=== PATIENT | female | born 1940 | race Caucasian/White ===

== ENCOUNTER 2018-04-08 07:26 | Day surgery (SDC) | payer MEDICARE, OTHER ==
[~2018-04-08 07:26] MED LIST: Lactated Ringers 1,000 ML IV SCH; Sodium Chloride 0.9% 10 ML Syringe FLUSH PRN
--- NOTE | 2018-04-09 09:08 | OR ---
DATE OF OPERATION: 04/08/2018 SURGEON: Jaren Lay MD PREOPERATIVE DIAGNOSIS: Cataract, right eye. POSTOPERATIVE DIAGNOSIS: Cataract, right eye. PROCEDURES: Phacoemulsification of cataract, right eye, with the placement of an Orantes model [id number], 20.5 diopters, foldable posterior chamber intraocular lens. MICA PLATE LAYER: None. DESCRIPTION OF PROCEDURE: Peribulbar anesthetic was performed using a mixture of 2% lidocaine with W[place]ase. The patient was prepped and draped in the usual fashion. A 3 mm fornix based conjunctival flap was performed at the 10 o'clock position. Hemostasis was obtained using diathermy, and a 2.8 mm grooved near clear corneal incision was then made. A stab incision was made into the anterior chamber at the 12 o'clock position and a second stab wound incision was made underlying the grooved near clear corneal incision. Viscoat was instilled into the anterior chamber, and a continuous tear capsulotomy was performed. Hydrodissection was accomplished with balanced salt solution, and the nucleus was removed in a divide and conquer fashion. The remaining cortical material was removed with the irrigation and aspiration unit. Viscoat was instilled into the anterior chamber, and an Orantes model [id number], 20.5 diopters, foldable, posterior chamber intraocular lens was placed into the capsular bag, the haptics being positioned at the 2 and 8 o'clock positions. The residual Viscoat was removed from the anterior chamber and the anterior chamber reformed with balanced salt solution. The wound was checked and noted to be watertight. The conjunctiva was secured in its original position with diathermy. Alphagan and Maxitrol Ointment were then placed into the patient's eye. The patient tolerated the procedure well and it was without complication. Elapsed phacoemulsification time was 55.5 seconds. Postoperative instructions as related to activities as well as medications were reviewed with the patient. The patient was instructed to return to see me on the day following surgery for the first postoperative check. The patient was also instructed to contact me prior to that time if the patient was to have any problems. Addendum: Because of the patient's borderline pupillary dilation, 0.3 mL of a mixture of phenylephrine, lidocaine, and balanced salt solution were instilled into the anterior chamber. This allowed adequate pupillary dilation throughout the course of the surgery. /[id number] DEG/MODL Cc: HEIDI Osorio OD
== END 2018-04-08 11:15 | disposition home or self-care (01) ==
LOC: FB.SDS 07:26
PROVIDERS: ATTEND Ophthalmology
PROC: 08RJ3JZ Replacement of Right Lens with Synthetic Substitute, Percutaneous Approach (ICD-10-PCS; principal; 2018-04-08)
DX: H26.8 Other specified cataract (principal); E11.9 Type 2 diabetes mellitus without complications; E78.5 Hyperlipidemia, unspecified; I10 Essential (primary) hypertension; E03.9 Hypothyroidism, unspecified; Z79.84 Long term (current) use of oral hypoglycemic drugs; Z79.82 Long term (current) use of aspirin; Z79.899 Other long term (current) drug therapy; Z88.8 Allergy status to other drugs, medicaments and biological substances; Z87.891 Personal history of nicotine dependence
CPT/HCPCS: 00142; 66984; 82962; C1780; J7120

== ENCOUNTER 2019-01-27 14:49 | Emergency (ER) | payer MEDICARE, OTHER ==
--- NOTE | 2019-01-27 15:40 | EDM.PDOC ---
ED HPI GENERAL MEDICAL PROBLEM - General Chief Complaint: Head Injury Stated Complaint: FROM CLINIC Time Seen by Provider: 01/27/19 15:08 Source of Information: Reports: Patient History Limitations: Reports: No Limitations - History of Present Illness INITIAL COMMENTS - FREE TEXT/NARRATIVE: 78-year-old female who was letting her dog outside and the leash got wrapped around her leg and she was pulled when going outside and fell on her deck and off the deck about 3 feet striking the back of her head and her left arm and her pelvis and buttocks area. She apparently also scraped her left arm and injured her left lower extremity. She states she had a brief loss of consciousness. She was able to get herself up on her own and walk back into her house. A family member arrived after her calling and found her to be pale and seemed to be somewhat out of breath and in pain. She presents via private vehicle. She has since cleared the shortness of breath and she is complaining of pain in her head, upper neck, left distal forearm area, tailbone and left lower extremity she is rating the pain in her tailbone and her left lower extremity as a 8/10. It is sharp. It is worse with movement and with palpation. She has some nausea but she has had no vomiting. Her vision is unchanged. No arm or leg weakness. No abdominal pain. No chest pain. There was no dizziness or malaise or chest pain or any other symptoms prior to her falling. There are no other associated signs or symptoms. There are no other modifying factors. Onset: Today (At approximately 12:45 PM) Location: Reports: Head, Neck, Pelvis, Upper Extremity, Left, Lower Extremity, Left Quality: Reports: Sharp, Throbbing Severity: Moderate Improves with: Reports: Immobilization, Rest Worsens with: Reports: Other (Palpation), Movement Associated Symptoms: Reports: Other (Nausea) Treatments CUSTOMER ACQUISITION MANAGER: Reports: Other (see below) Other Treatments CUSTOMER ACQUISITION MANAGER: Nothing tail bone Pain Score (Numeric/FACES): 8 head Pain Score (Numeric/FACES): 4 - Related Data Allergies Allergy/AdvReac Type Severity Reaction Status Date / Time amitriptyline [From Elavil] Allergy Cannot Verified 01/27/19 15:37 Remember atorvastatin [From Lipitor] Allergy Cannot Verified 01/27/19 15:37 Remember cephalexin Allergy Cannot Verified 01/27/19 15:37 Remember diclofenac [From Arthrotec] Allergy Swelling Verified 01/27/19 15:37 doxycycline Allergy Cannot Verified 01/27/19 15:37 Remember enalaprilat [From Vasotec] Allergy Cannot Verified 01/27/19 15:37 Remember ezetimibe [From Vytorin] Allergy Cannot Verified 01/27/19 15:37 Remember hydrochlorothiazide Allergy Cannot Verified 01/27/19 15:37 Remember meperidine [From Demerol] Allergy Facial Verified 01/27/19 15:37 Swelling metoclopramide [From Reglan] Allergy Facial Verified 01/27/19 15:37 Swelling misoprostol [From Arthrotec] Allergy Cannot Verified 01/27/19 15:37 Remember nifedipine [From Adalat] Allergy Cannot Verified 01/27/19 15:37 Remember Penicillins Allergy Cannot Verified 01/27/19 15:37 Remember pravastatin Allergy Cannot Verified 01/27/19 15:37 Remember prochlorperazine Allergy Cannot Verified 01/27/19 15:37 [From Compazine] Remember ramipril [From Altace] Allergy Cannot Verified 01/27/19 15:37 Remember rofecoxib [From Vioxx] Allergy Cannot Verified 01/27/19 15:37 Remember rosuvastatin [From Crestor] Allergy Cannot Verified 01/27/19 15:37 Remember simvastatin [From Vytorin] Allergy Cannot Verified 01/27/19 15:37 Remember Lpfasgi-Umq-Azb Reductase Allergy Cannot Verified 01/27/19 15:37 Inhibitor Remember terazosin [From Hytrin] Allergy Cannot Verified 01/27/19 15:37 Remember Home Meds: Home Meds Aspirin [Halfprin] 81 mg PO DAILY 04/07/18 [History] Levothyroxine [Synthroid] 50 mcg PO ACBREAKFAST 04/07/18 [History] Losartan Potassium [Cozaar] 50 mg PO BID 04/07/18 [History] Metoprolol Succinate [Toprol Xl] 100 mg PO BID 04/07/18 [History] amLODIPine Besylate [Norvasc] 2.5 mg PO DAILY 04/07/18 [History] metFORMIN [Glucophage XR] 500 mg PO TID 04/07/18 [History] Letrozole 2.5 mg PO BID 01/27/19 [History] Past Medical History HEENT History: Reports: Cataract, Impaired Vision Other HEENT History: PHACO IOL 03/2018 Cardiovascular History: Reports: High Cholesterol, Hypertension Respiratory History: Reports: None Gastrointestinal History: Reports: Colon Polyp Genitourinary History: Reports: None Other MANAGER SHIP History: VII PARA IV, PARA III Musculoskeletal History: Reports: Arthritis, Fibromyalgia Neurological History: Reports: Migraines Psychiatric History: Reports: Anxiety Endocrine/Metabolic History: Reports: Diabetes, Type II, Hypothyroidism, Multinodular Thyroid, Obesity/BMI 30+ Other Hematologic History: On no chronic anticoagulation. Immunologic History: Reports: None Oncologic (Cancer) History: Reports: Breast, Cervix Dermatologic History: Reports: None - Infectious Disease History Infectious Disease History: Reports: Chicken Pox, Measles, Mumps - Past Surgical History Head Surgeries/Procedures: Reports: None HEENT Surgical History: Reports: None, Oral Surgery Cardiovascular Surgical History: Reports: Other (See Below) Other Cardiovascular Surgeries/Procedures: ANGIOGRAM Respiratory Surgical History: Reports: None GI Surgical History: Reports: Appendectomy, Colonoscopy, EGD, Hernia, Abdominal , Manuela Fundoplication, Small Bowel Female Surgical History: Reports: Hysterectomy, Mastectomy, Salpingo- Oophorectomy, Other (See Below) Other Female Surgeries/Procedures: A&P BLADDER REPAIR, EXCISION OF VULVAR LESION, LEFT MASTECTOMY Endocrine Surgical History: Reports: None Neurological Surgical History: Reports: None Musculoskeletal Surgical History: Reports: Other (See Below) Other Musculoskeletal Surgeries/Procedures:: BILAT ANKLE LIPOMA EXCISION Oncologic Surgical History: Reports: Biopsy of Breast, Lumpectomy, Mastectomy Dermatological Surgical History: Reports: None Social & Family History - Family History Family Medical History: Noncontributory - Tobacco Use Smoking Status *Q: Never Smoker - Caffeine Use Caffeine Use: Reports: Coffee - Alcohol Use Alcohol Use History: Yes Alcohol Use Frequency: Rarely ED ROS GENERAL - Review of Systems Review Of Systems: See Below Constitutional: Reports: No Symptoms HEENT: Reports: No Symptoms Respiratory: Reports: No Symptoms (Did have shortness of breath with the activity of getting herself up and back into her house but this has resolved.) Cardiovascular: Reports: No Symptoms Endocrine: Reports: No Symptoms GI/Abdominal: Reports: Nausea Musculoskeletal: Reports: Neck Pain, Arm Pain, Leg Pain Skin: Reports: Other (Abrasion on left distal forearm) Neurological: Reports: Other (Brief loss of consciousness with the head injury from fall.) Psychiatric: Reports: No Symptoms Hematologic/Lymphatic: Reports: No Symptoms Immunologic: Reports: Other (Tetanus immunization greater than 5 years ago, so not up-to-date) ED EXAM, HEAD INJURY - Physical Exam Exam: See Below Exam Limited By: No Limitations General Appearance: Alert, WD/WN, No Apparent Distress Head: Normocephalic, Scalp Hematoma (Left sided), Scalp Tenderness, Other (No crepitus. No deformity.) Nexus Criteria: Posterior, Midline Cervical Tenderness, Altered Level of Consciousness (Normal now but she did have loss of consciousness) Eyes: Bilateral Eye: EOMI, Normal Inspection Ears: Normal External Exam, Hearing Grossly Normal Nose: Normal Inspection, Normal Mucousa, No Blood Throat/Mouth: Normal Inspection, Normal Voice, No Airway Compromise Neck: Normal Inspection, Tender Midline (At base of neck) Respiratory: No Respiratory Distress, Lungs Clear, Normal Breath Sounds, No Accessory Muscle Use, Chest Non-Tender Cardiovascular: Normal Peripheral Pulses, Regular Rate, Rhythm GI/Abdominal Exam: Normal Bowel Sounds, Soft, Non-Tender, No Mass, Pelvis Stable (But tender over posterior aspect along buttock area, left greater than right) Back Exam: Normal Inspection, Full Range of Motion Extremities: Normal Capillary Refill, Other (Tender over left lower leg. No left knee effusion with normal range of motion in the knee. Tender over the left hip and pelvis area but with no deformity.) Neurologic: outreach educator II-XII nml As Tested, No Motor/Sensory Deficits, Alert, Normal Mood/Affect, Oriented x 3 Skin: Normal Color, Warm/Dry, Other (Abrasion on left volar distal forearm) - Luisito Coma Score Best Eye Response (Luis[place]): (4) Open Spontaneously Best Verbal Response ([place]): (5) Oriented Best Motor Response ([place]is[place]): (6) Obeys Commands Luisito Total: 15 Course - Vital Signs Last Recorded V/S: Last Vital Signs Temp Pulse 90 01/27/19 14:50 Resp 18 01/27/19 14:50 BP 182/93 H 01/27/19 14:50 Pulse Ox 98 01/27/19 14:50 - Orders/Labs/Meds Orders: Active Orders 24 hr Category Date Time Status Vaccines to be Administered [RC] PER UNIT ROUTINE Care 01/27/19 17:18 Ordered Cervical Spine wo Cont [CT] Stat Exams 01/27/19 15:28 Taken Head wo Cont [CT] Stat Exams 01/27/19 15:28 Ordered Hip Min 2V or 3V w Pelvis Lt [CR] Stat Exams 01/27/19 15:28 Taken Sacrum Coccyx Min 2V [CR] Stat Exams 01/27/19 15:28 Taken Tibia Fibula Lt [CR] Stat Exams 01/27/19 15:28 Taken Diphth,Pertuss(Acell),Tet Vac [Adacel] Med 01/27/19 17:18 Once 0.5 ml IM .ONCE ONE Medication Orders Diphtheria/Tetanus/Acell Pertussis (Adacel) 0.5 ml IM .ONCE ONE Stop: 01/27/19 17:19 Meds: Medications Generic Name Dose Route Start Last Admin Trade Name Freq PRN Reason Stop Dose Admin Diphtheria/Tetanus/Acell Pertussis 0.5 ml 01/27/19 17:18 Adacel IM 01/27/19 17:19 .ONCE ONE Discontinued Medications Generic Name Dose Route Start Last Admin Trade Name Freq PRN Reason Stop Dose Admin Acetaminophen 1,000 mg 01/27/19 15:49 01/27/19 15:55 Tylenol Extra Strength PO 01/27/19 15:50 1,000 mg ONETIME ONE Administration Ondansetron HCl 4 mg 01/27/19 15:51 01/27/19 15:55 Zofran Odt PO 01/27/19 15:52 4 mg ONETIME ONE Administration Tramadol HCl 50 mg 01/27/19 15:49 01/27/19 15:55 Ultram PO 01/27/19 15:50 50 mg ONETIME ONE Administration - Radiology Interpretation Free Text/Narrative:: Left tib-fib x-ray shows no fracture. Pelvis and left hip x-ray shows no acute fracture. Coccyx and sacral x-rays shows nondisplaced coccyx fracture CT scan of head shows no acute pathology per the radiologist. CT scan of cervical spine shows no acute fracture per the radiologist. Departure - Departure Time of Disposition: 17:20 Disposition: Home, Self-Care 01 Condition: Good Clinical Impression: Concussion injury of brain Head contusion Qualifiers: Encounter type: initial encounter Contusion of head detail: scalp Qualified Code(s): S00.03XA - Contusion of scalp, initial encounter Fracture of coccyx Qualifiers: Encounter type: initial encounter Fracture type: closed Qualified Code(s): S32.2XXA - Fracture of coccyx, initial encounter for closed fracture Contusion, buttock Qualifiers: Encounter type: initial encounter Qualified Code(s): S30.0XXA - Contusion of lower back and pelvis, initial encounter Contusion of left lower extremity Qualifiers: Encounter type: initial encounter Qualified Code(s): S80.12XA - Contusion of left lower leg, initial encounter - Discharge Information Instructions: Head Injury, Adult, [id number], Facial or Scalp Contusion, Easy -to-Read, Concussion, Adult, [id number], Tailbone Injury, Contusion Referrals: Elva Ledesma SPECIAL EDUCATION SECRETARY [Primary Care Provider] - Forms: ED Department Discharge Additional Instructions: The CAT scans of your head and neck showed no bleeding or fractures. You do appear to have a concussion. You have a fractured tailbone. You appear to have bruised your pelvis, buttocks and left lower leg. Take Tylenol 1000 mg by mouth every 6 hours as needed for pain. Ambulate as tolerated. Use a soft pillow to sit on. Apply ice packs intermittently to the bruised and injured areas for the next few days. Back to the emergency department for vomiting, abdominal pain, blood in your urine or any other concerning sign or symptom. - My Orders Last 24 Hours: My Active Orders 01/27/19 15:28 Cervical Spine wo Cont [CT] Stat Head wo Cont [CT] Stat Hip Min 2V or 3V w Pelvis Lt [CR] Stat Sacrum Coccyx Min 2V [CR] Stat Tibia Fibula Lt [CR] Stat 01/27/19 17:18 Vaccines to be Administered [RC] PER UNIT ROUTINE Diphth,Pertuss(Acell),Tet Vac [Adacel] 0.5 ml IM .ONCE ONE - Assessment/Plan Last 24 Hours: My Active Orders 01/27/19 15:28 Cervical Spine wo Cont [CT] Stat Head wo Cont [CT] Stat Hip Min 2V or 3V w Pelvis Lt [CR] Stat Sacrum Coccyx Min 2V [CR] Stat Tibia Fibula Lt [CR] Stat 01/27/19 17:18 Vaccines to be Administered [RC] PER UNIT ROUTINE Diphth,Pertuss(Acell),Tet Vac [Adacel] 0.5 ml IM .ONCE ONE
[2019-01-27] MEDS ORDERED: Acetaminophen 500 MG Tab PO ONE (15:49)
[2019-01-27] MEDS ORDERED: traMADol 50 MG Tab PO ONE (15:49)
[2019-01-27] MEDS ORDERED: Ondansetron 4 MG Tab.DIS PO ONE (15:51)
[2019-01-27] MEDS ORDERED: Diphtheria,Pertussis(Acell),Tetanus Vaccine 0.5 ML SDV IM ONE (17:18)
--- NOTE | 2019-01-28 08:24 | CT ---
INDICATION: Fall with injury, now with pain. CT CERVICAL SPINE WITHOUT CONTRAST: Spiral 2.5 mm axial sections were obtained through the cervical spine with sagittal and coronal reconstructions, 01/27/19 - no comparisons. Total exam DLP = 376.10 mGy-cm. Degenerative changes and disk disease are noted in the cervical spine at the C5- 6, C6-7 levels with hypertrophic spurring, sclerosis, and subchondral cystic changes. Impingement on the neural foramina at those levels is also noted. Minimal degenerative change is noted at the atlantoodontoid joint. Prevertebral space and bone density appear to be normal. The odontoid and atlas were intact - no fractures or dislocations were identified in the cervical spine. Apical lung visualized incidentally was unremarkable. IMPRESSION: 1. No acute fracture or dislocation. 2. Degenerative changes and disk disease as noted above. Report was called to Dr. Riki Whelan at 1638 hours on 01/27/19. [id number]
--- NOTE | 2019-01-28 11:08 | CR ---
INDICATION: Fall with injury--pain. SACRUM AND COCCYX: Three views of the sacrum and coccyx were obtained 01/27/19- -no comparisons. Sacroiliac joints appear to be intact with mild degenerative changes, right greater then left. A definite fracture or dislocation was not identified. Somewhat diminished bone density may be present--correlate clinically. Degenerative changes and disc disease are suggested at L3-4 and L4-5. Incidental note of calcifications in the iliac arteries. IMPRESSION: 1. No acute fracture or dislocation. 2. Osteoarthritis. 3. Possible osteoporosis--correlate clinically. 4. 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 5. ASD. MTDD
--- NOTE | 2019-01-28 11:12 | CR ---
INDICATION: Fall with injury--pain. LEFT TIB-FIB: Frontal and lateral views of the left tibia and fibula revealed no evidence of an acute fracture or dislocation or other acute bone or joint abnormality. Some minimal degenerative change is suggested at the ankle mortise and at the knee joint. MTDD
--- NOTE | 2019-01-28 11:14 | CR ---
INDICATION: Fall with injury--pain. LEFT HIP WITH PELVIS: A single frontal view of the pelvis with AP and lateral views of the left hip were obtained 01/27/19--no comparisons. The hip joints appear to be fairly well maintained with only very minimal degenerative changes. Hip joint spaces were maintained. A fracture or dislocation was not identified. Sacroiliac joints appear to be intact with degenerative changes noted right greater than left. IMPRESSION: No acute fracture or dislocation. [facility]
== END 2019-01-27 17:45 | disposition home or self-care (01) ==
LOC: FB.ED 14:49
DX: S06.0X9A Concussion with loss of consciousness of unspecified duration, initial encounter (principal); S32.2XXA Fracture of coccyx, initial encounter for closed fracture; S00.03XA Contusion of scalp, initial encounter; S30.0XXA Contusion of lower back and pelvis, initial encounter; S80.12XA Contusion of left lower leg, initial encounter; S50.812A Abrasion of left forearm, initial encounter; I10 Essential (primary) hypertension; E11.9 Type 2 diabetes mellitus without complications; E66.9 Obesity, unspecified; Z23 Encounter for immunization; Z88.8 Allergy status to other drugs, medicaments and biological substances; Z88.1 Allergy status to other antibiotic agents; Z88.0 Allergy status to penicillin; Z79.82 Long term (current) use of aspirin; W17.89XA Other fall from one level to another, initial encounter
CPT/HCPCS: 70450; 72125; 72220; 73502; 73590; 90471; 99284; A9270

== ENCOUNTER 2020-10-06 12:58 | Emergency (ER) | payer MEDICARE, OTHER ==
--- NOTE | 2020-10-06 13:29 | EDM.PDOC ---
ED HPI GENERAL MEDICAL PROBLEM - General Stated Complaint: LOW BP Time Seen by Provider: 10/06/20 13:25 Source of Information: Reports: Patient, Family History Limitations: Reports: No Limitations - History of Present Illness INITIAL COMMENTS - FREE TEXT/NARRATIVE: Marni was brought from the clinic by her daughter. She had been complaining of abdominal pain and was found to have low BP at the clinic. She feels ok here. Abdominal pain is chronic. Some constipation. - Related Data Allergies Allergy/AdvReac Type Severity Reaction Status Date / Time amitriptyline [From Elavil] Allergy Cannot Verified 01/27/19 15:37 Remember atorvastatin [From Lipitor] Allergy Cannot Verified 01/27/19 15:37 Remember cephalexin Allergy Cannot Verified 01/27/19 15:37 Remember diclofenac [From Arthrotec] Allergy Swelling Verified 01/27/19 15:37 doxycycline Allergy Cannot Verified 01/27/19 15:37 Remember enalaprilat [From Vasotec] Allergy Cannot Verified 01/27/19 15:37 Remember ezetimibe [From Vytorin] Allergy Cannot Verified 01/27/19 15:37 Remember hydrochlorothiazide Allergy Cannot Verified 01/27/19 15:37 Remember meperidine [From Demerol] Allergy Facial Verified 01/27/19 15:37 Swelling metoclopramide [From Reglan] Allergy Facial Verified 01/27/19 15:37 Swelling misoprostol [From Arthrotec] Allergy Cannot Verified 01/27/19 15:37 Remember nifedipine [From Adalat] Allergy Cannot Verified 01/27/19 15:37 Remember Penicillins Allergy Cannot Verified 01/27/19 15:37 Remember pravastatin Allergy Cannot Verified 01/27/19 15:37 Remember prochlorperazine Allergy Cannot Verified 01/27/19 15:37 [From Compazine] Remember ramipril [From Altace] Allergy Cannot Verified 01/27/19 15:37 Remember rofecoxib [From Vioxx] Allergy Cannot Verified 01/27/19 15:37 Remember rosuvastatin [From Crestor] Allergy Cannot Verified 01/27/19 15:37 Remember simvastatin [From Vytorin] Allergy Cannot Verified 01/27/19 15:37 Remember Joklaex-Jbo-Vqk Reductase Allergy Cannot Verified 01/27/19 15:37 Inhibitor Remember terazosin [From Hytrin] Allergy Cannot Verified 01/27/19 15:37 Remember Home Meds: Home Meds Aspirin [Halfprin] 81 mg PO DAILY 04/07/18 [History] Levothyroxine [Synthroid] 50 mcg PO ACBREAKFAST 04/07/18 [History] Losartan Potassium [Cozaar] 50 mg PO BID 04/07/18 [History] Metoprolol Succinate [Toprol Xl] 100 mg PO BID 04/07/18 [History] amLODIPine Besylate [Norvasc] 2.5 mg PO DAILY 04/07/18 [History] metFORMIN [Glucophage XR] 500 mg PO TID 04/07/18 [History] Letrozole 2.5 mg PO BID 01/27/19 [History] Past Medical History HEENT History: Reports: Cataract, Impaired Vision Other HEENT History: PHACO IOL 03/2018 Cardiovascular History: Reports: High Cholesterol, Hypertension Respiratory History: Reports: None Gastrointestinal History: Reports: Colon Polyp Genitourinary History: Reports: None AGRICULTURAL EXTENSION EDUCATOR History: Reports: Other AGRICULTURAL EXTENSION EDUCATOR History: VII PARA IV, PARA III Musculoskeletal History: Reports: Arthritis, Fibromyalgia Neurological History: Reports: Migraines Psychiatric History: Reports: Anxiety Endocrine/Metabolic History: Reports: Diabetes, Type II, Hypothyroidism, Multinodular Thyroid, Obesity/BMI 30+ Hematologic History: Reports: None Other Hematologic History: On no chronic anticoagulation. Immunologic History: Reports: None Oncologic (Cancer) History: Reports: Breast, Cervix Dermatologic History: Reports: None - Infectious Disease History Infectious Disease History: Reports: Chicken Pox, Measles, Mumps - Past Surgical History Head Surgeries/Procedures: Reports: None HEENT Surgical History: Reports: None, Oral Surgery Cardiovascular Surgical History: Reports: Other (See Below) Other Cardiovascular Surgeries/Procedures: ANGIOGRAM Respiratory Surgical History: Reports: None GI Surgical History: Reports: Appendectomy, Colonoscopy, EGD, Hernia, Abdominal, Manuela Fundoplication, Small Bowel Female Surgical History: Reports: Hysterectomy, Mastectomy, Salpingo- Oophorectomy, Other (See Below) Other Female Surgeries/Procedures: A&P BLADDER REPAIR, EXCISION OF VULVAR LESION, LEFT MASTECTOMY Endocrine Surgical History: Reports: None Neurological Surgical History: Reports: None Musculoskeletal Surgical History: Reports: Other (See Below) Other Musculoskeletal Surgeries/Procedures:: BILAT ANKLE LIPOMA EXCISION Oncologic Surgical History: Reports: Biopsy of Breast, Lumpectomy, Mastectomy Dermatological Surgical History: Reports: None Social & Family History - Family History Family Medical History: No Pertinent Family History - Caffeine Use Caffeine Use: Reports: Coffee ED ROS GENERAL - Review of Systems Review Of Systems: Comprehensive ROS is negative, except as noted in HPI. Constitutional: Reports: No Symptoms HEENT: Reports: No Symptoms Respiratory: Reports: No Symptoms Cardiovascular: Reports: No Symptoms GI/Abdominal: Reports: Abdominal Pain, Constipation : Reports: No Symptoms, Urinary Retention Skin: Reports: No Symptoms ED EXAM, GENERAL - Physical Exam Exam: See Below Exam Limited By: No Limitations General Appearance: Alert, WD/WN, No Apparent Distress Ears: Normal External Exam Ear Exam: Bilateral Ear: Auricle Normal, Canal Normal, TM normal Throat/Mouth: Normal Inspection Neck: Normal Inspection Respiratory/Chest: No Respiratory Distress Departure - Departure Time of Disposition: 13:27 Disposition: Home, Self-Care 01 Condition: Good Clinical Impression: HTN (hypertension) - Discharge Information - Problem List & Annotations (1) HTN (hypertension) SNOMED Code(s): 08785122 Code(s): I10 - ESSENTIAL (PRIMARY) HYPERTENSION Status: Acute Qualifiers: Hypertension type: essential hypertension Qualified Code(s): I10 - Essential (primary) hypertension - Problem List Review Problem List Initiated/Reviewed/Updated: Yes - Assessment/Plan Plan: I reviewed labs from [facility]. Looked normal. I obtained her orthostatics here,no significant change. Will DC home Hold Norvasc if dizzy. Check BP daily. See PCP on Saturday
== END 2020-10-06 13:52 | disposition home or self-care (01) ==
LOC: FB.ED 12:58
DX: I10 Essential (primary) hypertension (principal); E11.9 Type 2 diabetes mellitus without complications; F41.9 Anxiety disorder, unspecified; E03.9 Hypothyroidism, unspecified; M19.90 Unspecified osteoarthritis, unspecified site; Z88.8 Allergy status to other drugs, medicaments and biological substances; Z88.1 Allergy status to other antibiotic agents; Z88.6 Allergy status to analgesic agent; Z88.5 Allergy status to narcotic agent; Z88.0 Allergy status to penicillin; Z79.82 Long term (current) use of aspirin; Z79.84 Long term (current) use of oral hypoglycemic drugs; Z79.899 Other long term (current) drug therapy
CPT/HCPCS: 99284

== ENCOUNTER 2020-10-31 12:06 | Inpatient (IN) | payer MEDICARE, OTHER ==
--- NOTE | 2020-10-31 13:33 | CR ---
INDICATION: Anasarca, weight gain. CHEST ONE VIEW: An AP upright portable view of the chest was obtained 10/31/20 and compared with 11/19/[address] [facility] PA view. The heart appears enlarged, the aorta is tortuous with calcification in the arch. Behind the heart there is suggestion of a fixed hiatal hernia - correlated clinically. Lumpectomy and axillary node dissection are noted on the left. Overlying EKG leads are noted. Relatively poor inspiration is noted emphasizing markings. No gross consolidating pneumonia or definite effusion was seen. With a relative poor inspiration and technique, it is difficult to entirely exclude minimal patchy bronchopneumonia in the mid to lower lung rojo, however, no gross consolidating pneumonia or effusion was seen. IMPRESSION: 1. No definite acute process, but difficult to exclude patchy bronchopneumonia in areas of heavy markings most likely on the basis of poor inspiration. Full inspiration PA and lateral views of the chest may be helpful when clinically possibly. 2. ASHD with cardiomegaly - no definite CHF identified. 3. Lumpectomy, left breast with axillary node dissection. MTDD
--- NOTE | 2020-10-31 15:00 | EDM.PDOC ---
ED HPI GENERAL MEDICAL PROBLEM - General Chief Complaint: Cardiovascular Problem Stated Complaint: LEG SWELLING Time Seen by Provider: 10/31/20 12:35 Source of Information: Reports: Patient, Family History Limitations: Reports: Altered Mental Status - History of Present Illness INITIAL COMMENTS - FREE TEXT/NARRATIVE: c/o wt gain x 1m pt on diuretics x 2m, dose of furosemide inc'd several days ago, however has 6 lb wt gain in past week (dtr not sure of past month) and 1 lb in past week after inc'd furosemide [facility], plans for cardiac intervention d/t breast CA has limited ability to walk d/t PVD lower abd Pain Score (Numeric/FACES): 7 - Related Data Allergies Allergy/AdvReac Type Severity Reaction Status Date / Time amitriptyline [From Elavil] Allergy Cannot Verified 01/27/19 15:37 Remember atorvastatin [From Lipitor] Allergy Cannot Verified 01/27/19 15:37 Remember cephalexin Allergy Cannot Verified 01/27/19 15:37 Remember diclofenac [From Arthrotec] Allergy Swelling Verified 01/27/19 15:37 doxycycline Allergy Cannot Verified 01/27/19 15:37 Remember enalaprilat [From Vasotec] Allergy Cannot Verified 01/27/19 15:37 Remember ezetimibe [From Vytorin] Allergy Cannot Verified 01/27/19 15:37 Remember hydrochlorothiazide Allergy Cannot Verified 01/27/19 15:37 Remember meperidine [From Demerol] Allergy Facial Verified 01/27/19 15:37 Swelling metoclopramide [From Reglan] Allergy Facial Verified 01/27/19 15:37 Swelling misoprostol [From Arthrotec] Allergy Cannot Verified 01/27/19 15:37 Remember nifedipine [From Adalat] Allergy Cannot Verified 01/27/19 15:37 Remember Penicillins Allergy Cannot Verified 01/27/19 15:37 Remember pravastatin Allergy Cannot Verified 01/27/19 15:37 Remember prochlorperazine Allergy Cannot Verified 01/27/19 15:37 [From Compazine] Remember ramipril [From Altace] Allergy Cannot Verified 01/27/19 15:37 Remember rofecoxib [From Vioxx] Allergy Cannot Verified 01/27/19 15:37 Remember rosuvastatin [From Crestor] Allergy Cannot Verified 01/27/19 15:37 Remember simvastatin [From Vytorin] Allergy Cannot Verified 01/27/19 15:37 Remember Rlclmgn-[id number]-Lqn Reductase Allergy Cannot Verified 01/27/19 15:37 Inhibitor Remember terazosin [From Hytrin] Allergy Cannot Verified 01/27/19 15:37 Remember Home Meds: Home Meds Aspirin [Halfprin] 81 mg PO DAILY 04/07/18 [History] Levothyroxine [Synthroid] 50 mcg PO ACBREAKFAST 04/07/18 [History] Losartan Potassium [Cozaar] 50 mg PO BID 04/07/18 [History] Metoprolol Succinate [Toprol Xl] 100 mg PO BID 04/07/18 [History] amLODIPine Besylate [Norvasc] 2.5 mg PO DAILY 04/07/18 [History] metFORMIN [Glucophage XR] 500 mg PO TID 04/07/18 [History] Letrozole 2.5 mg PO BID 01/27/19 [History] Past Medical History HEENT History: Reports: Cataract, Impaired Vision Other HEENT History: PHACO IOL 03/2018 Cardiovascular History: Reports: High Cholesterol, Hypertension Respiratory History: Reports: None Gastrointestinal History: Reports: Colon Polyp Genitourinary History: Reports: None [employer] History: Reports: Other [employer]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 Immunologic History: Reports: None Oncologic (Cancer) History: Reports: Breast, Cervix Dermatologic History: Reports: None - Infectious Disease History Infectious Disease History: Reports: Chicken Pox, Measles, Mumps - Past Surgical History Head Surgeries/Procedures: Reports: None HEENT Surgical History: Reports: None, Oral Surgery Cardiovascular Surgical History: Reports: Other (See Below) Other Cardiovascular Surgeries/Procedures: ANGIOGRAM Respiratory Surgical History: Reports: None GI Surgical History: Reports: Appendectomy, Colonoscopy, EGD, Hernia, Abdominal, Manuela Fundoplication, Small Bowel Female Surgical History: Reports: Hysterectomy, Mastectomy, Salpingo- Oophorectomy, Other (See Below) Other Female Surgeries/Procedures: A&P BLADDER REPAIR, EXCISION OF VULVAR LESION, LEFT MASTECTOMY Endocrine Surgical History: Reports: None Neurological Surgical History: Reports: None Musculoskeletal Surgical History: Reports: Other (See Below) Other Musculoskeletal Surgeries/Procedures:: BILAT ANKLE LIPOMA EXCISION Oncologic Surgical History: Reports: Biopsy of Breast, Lumpectomy, Mastectomy Dermatological Surgical History: Reports: None Social & Family History - Family History Family Medical History: No Pertinent Family History - Tobacco Use Tobacco Use Status *Q: Never Tobacco User - Caffeine Use Caffeine Use: Reports: None ED ROS GENERAL - Review of Systems Review Of Systems: See Below Constitutional: Reports: No Symptoms HEENT: Reports: No Symptoms Respiratory: Reports: Shortness of Breath Cardiovascular: Reports: Edema Endocrine: Reports: No Symptoms GI/Abdominal: Reports: Abdominal Pain. Denies: Constipation, Diarrhea, Nausea, Vomiting : Reports: No Symptoms Musculoskeletal: Reports: No Symptoms Skin: Reports: No Symptoms Neurological: Reports: No Symptoms Psychiatric: Reports: No Symptoms Hematologic/Lymphatic: Reports: No Symptoms Immunologic: Reports: No Symptoms ED EXAM, GENERAL - Physical Exam Exam: See Below Exam Limited By: No Limitations General Appearance: Alert, WD/WN, No Apparent Distress, Other (alert, makes eye contact, NAD, cannot answer simple questions such as "are you in pain") Ears: Hearing Grossly Normal Nose: Normal Inspection Throat/Mouth: Normal Inspection, Normal Voice, No Airway Compromise Head: Atraumatic, Normocephalic Neck: Normal Inspection, Supple, Non-Tender, Full Range of Motion. No: Lymphadenopathy (R), Lymphadenopathy (L) Respiratory/Chest: Other (crackle L base up 25%, crackles R base only, fair AE, no wheeze, no inc'd exp phase, no cough, no dyspnea) Cardiovascular: Regular Rate, Rhythm (2/6 RAFFY at LSB), No Gallop, Other (DP pulse trace b/l, 3+ edema to knees, 1+ to groin, trace presacral edema) GI/Abdominal: Soft, Non-Tender, Other (distention and rounding of abd, unclear if this is her baseline, soft, no point tender, may have dull at flanks) Back Exam: Normal Inspection, Full Range of Motion, NT Extremities: Normal Inspection, Normal Range of Motion, Non-Tender, No Pedal Edema Neurological: Alert, Oriented, CN II-XII Intact, Normal Cognition, No Motor/Sensory Deficits Psychiatric: Normal Affect, Normal Mood Skin Exam: Warm, Dry, Intact, Normal Color, No Rash Lymphatic: No Adenopathy Course - Vital Signs Last Recorded V/S: Last Vital Signs Temp 36.7 C 10/31/20 12:45 Pulse 72 10/31/20 12:45 Resp 20 10/31/20 12:45 BP 149/60 H 10/31/20 12:45 Pulse Ox 100 10/31/20 12:45 - Orders/Labs/Meds Orders: Active Orders 24 hr Category Date Time Status Chest 1V Frontal [CR] Stat Exams 10/31/20 12:23 Ordered Labs: Laboratory Tests 10/31/20 10/31/20 10/31/20 Range/Units 12:45 12:45 12:45 WBC 7.0 (3.0-10.3) x10-3/uL RBC 3.80 (3.60-5.20) x10(6)uL Hgb 11.2 L (11.4-15.5) g/dL Hct 34.5 (34.2-48.2) % MCV 90.9 (76.7-100.5) fL MCH 29.4 (23.9-33.9) pg MCHC 32.4 (31.9-34.8) g/dL RDW 12.7 (12.3-16.5) % Plt Count 287 (151-488) x10(3)uL MPV 9.7 (7.1-12.4) fL Neut % (Auto) 59.9 (30.8-76.2) % Lymph % (Auto) 27.6 (18.4-52.1) % [place] % (Auto) 8.1 (4.4-15.7) % Eos % (Auto) 3.2 (0.6-8.1) % Baso % (Auto) 1.2 (0.2-1.5) % Neut # (Auto) 4.2 (1.5-6.3) x10-3/uL Lymph # (Auto) 1.9 (1.0-4.4) x10-3/uL [place] # (Auto) 0.6 (0.3-1.0) x10-3/uL Eos # (Auto) 0.2 (0.0-0.8) x10-3/uL Baso # (Auto) 0.1 (0.0-0.1) x10-3/uL PT (9.0-11.1) sec INR (1.00-1.24) Sodium 135 (135-145) mmol/L Potassium 4.0 (3.5-5.3) mmol/L Chloride 99 L (100-110) mmol/L Carbon Dioxide 30 (21-32) mmol/L BUN 18 (7-18) mg/dL Creatinine 1.0 (0.55-1.02) mg/dL Est Cr Clr Drug Dosing TNP Estimated GFR (MDRD) 53 L (>60) BUN/Creatinine Ratio 18.0 (9-20) Glucose 139 H (80-116) mg/dL Calcium 8.7 (8.6-10.2) mg/dL Magnesium (1.8-2.5) mg/dL Total Bilirubin 0.4 (0.1-1.3) mg/dL AST 18 (5-25) IU/L ALT 15 (12-36) U/L Alkaline Phosphatase 88 (56-112) IU/L Troponin I (4.0-60.3) pg/mL C-Reactive Protein 1.3 H (0.5-0.9) mg/dL NT-Pro-B Natriuret Pep (<=450) pg/mL Total Protein 7.2 (6.0-8.0) g/dL Albumin 3.1 L (3.2-4.6) g/dL Globulin 4.1 g/dL Albumin/Globulin Ratio 0.8 TSH, Ultra Sensitive (0.36-3.74) IU/mL Urine Color (YELLOW) Urine Appearance (CLEAR) Urine pH (5.0-6.5) Ur Specific [place] (1.010-1.025) Urine Protein (NEGATIVE) mg/dL Urine Glucose (UA) (NORMAL) mg/dL Urine Ketones (NEGATIVE) mg/dL Urine Occult Blood (NEGATIVE) Urine Nitrite (NEGATIVE) Urine Bilirubin (NEGATIVE) Urine Urobilinogen (NEGATIVE) mg/dL Ur Leukocyte Esterase (NEGATIVE) Urine WBC (0-5) Ur Squamous Epith Cells (NS,R,O) Urine Bacteria (NS) SARS-CoV-2 RNA (YOON) (NEGATIVE) 10/31/20 10/31/20 10/31/20 Range/Units 12:45 12:45 12:45 WBC (3.0-10.3) x10-3/uL RBC (3.60-5.20) x10(6)uL Hgb (11.4-15.5) g/dL Hct (34.2-48.2) % MCV (76.7-100.5) fL MCH (23.9-33.9) pg MCHC (31.9-34.8) g/dL RDW (12.3-16.5) % Plt Count (151-488) x10(3)uL MPV (7.1-12.4) fL Neut % (Auto) (30.8-76.2) % Lymph % (Auto) (18.4-52.1) % [place] % (Auto) (4.4-15.7) % Eos % (Auto) (0.6-8.1) % Baso % (Auto) (0.2-1.5) % Neut # (Auto) (1.5-6.3) x10-3/uL Lymph # (Auto) (1.0-4.4) x10-3/uL [place] # (Auto) (0.3-1.0) x10-3/uL Eos # (Auto) (0.0-0.8) x10-3/uL Baso # (Auto) (0.0-0.1) x10-3/uL PT 11.4 H (9.0-11.1) sec INR 1.06 (1.00-1.24) Sodium (135-145) mmol/L Potassium (3.5-5.3) mmol/L Chloride (100-110) mmol/L Carbon Dioxide (21-32) mmol/L BUN (7-18) mg/dL Creatinine (0.55-1.02) mg/dL Est Cr Clr Drug Dosing Estimated GFR (MDRD) (>60) BUN/Creatinine Ratio (9-20) Glucose (80-116) mg/dL Calcium (8.6-10.2) mg/dL Magnesium 1.5 L (1.8-2.5) mg/dL Total Bilirubin (0.1-1.3) mg/dL AST (5-25) IU/L ALT (12-36) U/L Alkaline Phosphatase (56-112) IU/L Troponin I 16.1 (4.0-60.3) pg/mL C-Reactive Protein (0.5-0.9) mg/dL NT-Pro-B Natriuret Pep 4592 H* (<=450) pg/mL Total Protein (6.0-8.0) g/dL Albumin (3.2-4.6) g/dL Globulin g/dL Albumin/Globulin Ratio TSH, Ultra Sensitive 2.09 (0.36-3.74) IU/mL Urine Color (YELLOW) Urine Appearance (CLEAR) Urine pH (5.0-6.5) Ur Specific [place] (1.010-1.025) Urine Protein (NEGATIVE) mg/dL Urine Glucose (UA) (NORMAL) mg/dL Urine Ketones (NEGATIVE) mg/dL Urine Occult Blood (NEGATIVE) Urine Nitrite (NEGATIVE) Urine Bilirubin (NEGATIVE) Urine Urobilinogen (NEGATIVE) mg/dL Ur Leukocyte Esterase (NEGATIVE) Urine WBC (0-5) Ur Squamous Epith Cells (NS,R,O) Urine Bacteria (NS) SARS-CoV-2 RNA (YOON) (NEGATIVE) 10/31/20 10/31/20 Range/Units 12:59 13:20 WBC (3.0-10.3) x10-3/uL RBC (3.60-5.20) x10(6)uL Hgb (11.4-15.5) g/dL Hct (34.2-48.2) % MCV (76.7-100.5) fL MCH (23.9-33.9) pg MCHC (31.9-34.8) g/dL RDW (12.3-16.5) % Plt Count (151-488) x10(3)uL MPV (7.1-12.4) fL Neut % (Auto) (30.8-76.2) % Lymph % (Auto) (18.4-52.1) % [place] % (Auto) (4.4-15.7) % Eos % (Auto) (0.6-8.1) % Baso % (Auto) (0.2-1.5) % Neut # (Auto) (1.5-6.3) x10-3/uL Lymph # (Auto) (1.0-4.4) x10-3/uL [place] # (Auto) (0.3-1.0) x10-3/uL Eos # (Auto) (0.0-0.8) x10-3/uL Baso # (Auto) (0.0-0.1) x10-3/uL PT (9.0-11.1) sec INR (1.00-1.24) Sodium (135-145) mmol/L Potassium (3.5-5.3) mmol/L Chloride (100-110) mmol/L Carbon Dioxide (21-32) mmol/L BUN (7-18) mg/dL Creatinine (0.55-1.02) mg/dL Est Cr Clr Drug Dosing Estimated GFR (MDRD) (>60) BUN/Creatinine Ratio (9-20) Glucose (80-116) mg/dL Calcium (8.6-10.2) mg/dL Magnesium (1.8-2.5) mg/dL Total Bilirubin (0.1-1.3) mg/dL AST (5-25) IU/L ALT (12-36) U/L Alkaline Phosphatase (56-112) IU/L Troponin I (4.0-60.3) pg/mL C-Reactive Protein (0.5-0.9) mg/dL NT-Pro-B Natriuret Pep (<=450) pg/mL Total Protein (6.0-8.0) g/dL Albumin (3.2-4.6) g/dL Globulin g/dL Albumin/Globulin Ratio TSH, Ultra Sensitive (0.36-3.74) IU/mL Urine Color Yellow (YELLOW) Urine Appearance Clear (CLEAR) Urine pH 7.0 H (5.0-6.5) Ur Specific [place] 1.010 (1.010-1.025) Urine Protein Negative (NEGATIVE) mg/dL Urine Glucose (UA) Normal (NORMAL) mg/dL Urine Ketones Negative (NEGATIVE) mg/dL Urine Occult Blood Negative (NEGATIVE) Urine Nitrite Negative (NEGATIVE) Urine Bilirubin Negative (NEGATIVE) Urine Urobilinogen Normal (NEGATIVE) mg/dL Ur Leukocyte Esterase Negative (NEGATIVE) Urine WBC 0-5 (0-5) Ur Squamous Epith Cells Few H (NS,R,O) Urine Bacteria Few H (NS) SARS-CoV-2 RNA (YOON) Negative (NEGATIVE) - Re-Assessments/Exams Free Text/Narrative Re-Assessment/Exam: 10/31/20 15:02 labs and imaging reviewed with dtr d/w Dr Yang who accepted in admission, dtr agrees seems to have uncomplicated heart failure with normal LFTs, GFR 50, no proteinuria, mild dec'd alb 3.1 echo report 2019 not available on [place], Dr Yang is reviewing through separate access pt has known PVD and CAD, has not had revascularization of each waking is limited with walker DNR/DNI Departure - Departure Time of Disposition: 14:53 Disposition: Admitted As Inpatient 66 Condition: Good Clinical Impression: Acute on chronic heart failure, Pulmonary edema, Anasarca, Elevated brain natriuretic peptide (BNP) level, Hypoalbuminemia, Dementia, Hypomagnesemia, Normocytic normochromic anemia, Chronic renal insufficiency, Elevated C-reactive protein (CRP), Hyperglycemia Sepsis Event Note (ED) - Evaluation Sepsis Screening Result: No Definite Risk - Focused Exam Vital Signs: Vital Signs Temp Pulse Resp BP Pulse Ox 10/31/20 12:45 36.7 C 72 20 149/60 H 100 - My Orders Last 24 Hours: My Active Orders 10/31/20 12:23 Chest 1V Frontal [CR] Stat - Assessment/Plan Last 24 Hours: My Active Orders 10/31/20 12:23 Chest 1V Frontal [CR] Stat
[2020-10-31] MEDS: Morphine 2 MG/ML SYRINGE IVPUSH ONE ×2 (15:31→15:36)
[2020-10-31] MEDS ORDERED: Acetaminophen 325 MG Tab PO ONE (15:35)
--- NOTE | 2020-10-31 16:49 | PCM.HP.2 ---
H&P History of Present Illness - General Date of Service: 10/31/20 Admit Problem/Dx: Admission Diagnosis/Problem Admission Diagnosis/Problem Heart failure Source of Information: Patient (limited due to cognition), EMS Notes Reviewed, Family History Limitations: Reports: Physical Impairment (dementia) - History of Present Illness Initial Comments - Free Text/Narative: Marni was brought in by daughter for increased weight gain of 6 lbs over the past week, but overall has increased over the past month. Her last Echo was done at [facility] 04/2019 for her left mastectomy, she was due to have some cardiac interventions but that was postponed for her mastectomy then did not get done. History of CAD & PVD. Had increased dose of Lasix over the past few weeks, has been on for 2 months. Had increasing shortness of breath, swelling in her legs to point that she was having trouble walking. Complains of abdominal pain, Lara her daughter states she complains of gas frequently. She had history of constipation but the medications she was on were causing more loose stools so they changed her to every other day dosing, which has kept her regular. Lara is power of sports attorney, healthcare agent for her mom. Marni lives at [facility] in an apartment, daughter does pay for hourly rounding on her, she has debated on moving her to memory care unit. Labs in ER significant for proBNP 4592, troponin & covid negative, Magnesium 1.5, CRP 1.3, creatinine 1.0, BUN 18. CXR some pulmonary edema, official report pending. lower abd Pain Score (Numeric/FACES): 7 - Related Data Allergies/Adverse Reactions: Allergies Allergy/AdvReac Type Severity Reaction Status Date / Time amitriptyline [From Elavil] Allergy Cannot Verified 01/27/19 15:37 Remember atorvastatin [From Lipitor] Allergy Cannot Verified 01/27/19 15:37 Remember cephalexin Allergy Cannot Verified 01/27/19 15:37 Remember diclofenac [From Arthrotec] Allergy Swelling Verified 01/27/19 15:37 doxycycline Allergy Cannot Verified 01/27/19 15:37 Remember enalaprilat [From Vasotec] Allergy Cannot Verified 01/27/19 15:37 Remember ezetimibe [From Vytorin] Allergy Cannot Verified 01/27/19 15:37 Remember hydrochlorothiazide Allergy Cannot Verified 01/27/19 15:37 Remember meperidine [From Demerol] Allergy Facial Verified 01/27/19 15:37 Swelling metoclopramide [From Reglan] Allergy Facial Verified 01/27/19 15:37 Swelling misoprostol [From Arthrotec] Allergy Cannot Verified 01/27/19 15:37 Remember nifedipine [From Adalat] Allergy Cannot Verified 01/27/19 15:37 Remember Penicillins Allergy Cannot Verified 01/27/19 15:37 Remember pravastatin Allergy Cannot Verified 01/27/19 15:37 Remember prochlorperazine Allergy Cannot Verified 01/27/19 15:37 [From Compazine] Remember ramipril [From Altace] Allergy Cannot Verified 01/27/19 15:37 Remember rofecoxib [From Vioxx] Allergy Cannot Verified 01/27/19 15:37 Remember rosuvastatin [From Crestor] Allergy Cannot Verified 01/27/19 15:37 Remember simvastatin [From Vytorin] Allergy Cannot Verified 01/27/19 15:37 Remember Glkngom-Psv-Udg Reductase Allergy Cannot Verified 01/27/19 15:37 Inhibitor Remember terazosin [From Hytrin] Allergy Cannot Verified 01/27/19 15:37 Remember Home Medications: Home Meds Aspirin [Halfprin] 81 mg PO DAILY 04/07/18 [History] Levothyroxine [Synthroid] 50 mcg PO DAILY 04/07/18 [History] Metoprolol Succinate [Toprol Xl] 100 mg PO BID 04/07/18 [History] amLODIPine Besylate [Norvasc] 2.5 mg PO DAILY 04/07/18 [History] Letrozole 2.5 mg PO BEDTIME 01/27/19 [History] Acetaminophen [Tylenol Extra Strength] 1,000 mg PO BID PRN 10/31/20 [History] Cholecalciferol (Vitamin D3) [Vitamin D3] 25 mcg PO DAILY 10/31/20 [History] Citalopram [Citalopram HBr] 30 mg PO DAILY 10/31/20 [History] Clotrimazole [Clotrimazole 1%] 1 applic TOP BID PRN 10/31/20 [History] Cyanocobalamin (Vitamin B-12) [Vitamin B-12] 1,000 mcg PO DAILY 10/31/20 [History] Furosemide [Lasix] 20 mg PO DAILY@1200 10/31/20 [History] Furosemide [Lasix] 40 mg PO DAILY 10/31/20 [History] Ibuprofen 400 mg PO BID PRN 10/31/20 [History] Multivitamin [Gummi Bear Multivitamin] 1 tab PO DAILY 10/31/20 [History] Nystatin [Nystatin Crm] 1 applic TOP BID PRN 10/31/20 [History] Omeprazole 20 mg PO BEDTIME 10/31/20 [History] Potassium Chloride [Klor-Con 10] 10 meq PO BEDTIME 10/31/20 [History] QUEtiapine [SEROquel] 25 mg PO BID@1200,1700 10/31/20 [History] Sennosides/Docusate Sodium [Senna-S] 1 tab PO Q48H 10/31/20 [History] Past Medical History HEENT History: Reports: Cataract, Impaired Vision Other HEENT History: PHACO IOL 03/2018 Cardiovascular History: Reports: High Cholesterol, Hypertension Respiratory History: Reports: None Gastrointestinal History: Reports: Colon Polyp Genitourinary History: Reports: None EYELET MAKER History: Reports: Other OB/BYN History: VII PARA IV, PARA III Musculoskeletal History: Reports: Arthritis, Fibromyalgia Neurological History: Reports: Migraines Psychiatric History: Reports: Anxiety Endocrine/Metabolic History: Reports: Diabetes, Type II, Hypothyroidism, Multinodular Thyroid, Obesity/BMI 30+ Hematologic History: Reports: None Other Hematologic History: On no chronic anticoagulation. Immunologic History: Reports: None Oncologic (Cancer) History: Reports: Breast, Cervix Dermatologic History: Reports: None - Infectious Disease History Infectious Disease History: Reports: Chicken Pox, Measles, Mumps - Past Surgical History Head Surgeries/Procedures: Reports: None HEENT Surgical History: Reports: None, Oral Surgery Cardiovascular Surgical History: Reports: Other (See Below) Other Cardiovascular Surgeries/Procedures: ANGIOGRAM Respiratory Surgical History: Reports: None GI Surgical History: Reports: Appendectomy, Colonoscopy, EGD, Hernia, Abdominal, Manuela Fundoplication, Small Bowel Female Surgical History: Reports: Hysterectomy, Mastectomy, Salpingo- Oophorectomy, Other (See Below) Other Female Surgeries/Procedures: A&P BLADDER REPAIR, EXCISION OF VULVAR LESION, LEFT MASTECTOMY Endocrine Surgical History: Reports: None Neurological Surgical History: Reports: None Musculoskeletal Surgical History: Reports: Other (See Below) Other Musculoskeletal Surgeries/Procedures:: BILAT ANKLE LIPOMA EXCISION Oncologic Surgical History: Reports: Biopsy of Breast, Lumpectomy, Mastectomy Dermatological Surgical History: Reports: None Social & Family History - Family History Family Medical History: No Pertinent Family History - Tobacco Use Tobacco Use Status *Q: Never Tobacco User - Caffeine Use Caffeine Use: Reports: None H&P Review of Systems - Review of Systems: Review Of Systems: See Below Free Text/Narrative: Limited due to cognition General: Reports: Weight Gain HEENT: Denies: Sore Throat Pulmonary: Reports: Shortness of Breath Cardiovascular: Reports: Edema Gastrointestinal: Reports: Abdominal Pain, Flatus. Denies: Constipation, Diarrhea, Nausea, Vomiting Genitourinary: Reports: No Symptoms Musculoskeletal: Reports: Leg Pain, Muscle Stiffness Skin: Reports: Pallor Psychiatric: Reports: Confusion (chronic) Exam - Exam Exam: See Below - Vital Signs Vital Signs: Last Vital Signs Temp 98.3 F 10/31/20 16:06 Pulse 85 10/31/20 16:06 Resp 16 10/31/20 16:06 BP 149/60 H 10/31/20 12:45 Pulse Ox 95 10/31/20 16:06 Weight: 189 lb 1.6 oz - Exam General: Alert, Oriented (person), Cooperative. No: Mild Distress HEENT: PERRLA, Conjunctiva Clear, Other (dentures). No: Hearing Intact (hearing aids) Lungs: Clear to Auscultation, Normal Respiratory Effort, Decreased Breath Sounds (bibasilar), Crackles (bibasilar) Cardiovascular: Regular Rate, Regular Rhythm GI/Abdominal Exam: Normal Bowel Sounds, Soft, No Distention, Guarding, Tender (diffuse). No: Rigid, Rebound (Female) Exam: Deferred Rectal (Female) Exam: Deferred Extremities: Pedal Edema (2+ extends up to knees, bilateral), Leg Pain (bilateral, due to edema) Peripheral Pulses: 2+: Radial (L), Radial (R) Skin: Warm, Dry, Intact Neuro Extensive - Mental Status: Disorientation to Place, Disorientation to Time, Memory Loss-Recent Events Psychiatric: Anxious - Patient Data Lab Results Last 24 hrs: Laboratory Results - last 24 hr 10/31/20 10/31/20 10/31/20 Range/Units 12:45 12:45 12:45 WBC 7.0 (3.0-10.3) x10-3/uL RBC 3.80 (3.60-5.20) x10(6)uL Hgb 11.2 L (11.4-15.5) g/dL Hct 34.5 (34.2-48.2) % MCV 90.9 (76.7-100.5) fL MCH 29.4 (23.9-33.9) pg MCHC 32.4 (31.9-34.8) g/dL RDW 12.7 (12.3-16.5) % Plt Count 287 (151-488) x10(3)uL MPV 9.7 (7.1-12.4) fL Neut % (Auto) 59.9 (30.8-76.2) % Lymph % (Auto) 27.6 (18.4-52.1) % [place] % (Auto) 8.1 (4.4-15.7) % Eos % (Auto) 3.2 (0.6-8.1) % Baso % (Auto) 1.2 (0.2-1.5) % Neut # (Auto) 4.2 (1.5-6.3) x10-3/uL Lymph # (Auto) 1.9 (1.0-4.4) x10-3/uL [place] # (Auto) 0.6 (0.3-1.0) x10-3/uL Eos # (Auto) 0.2 (0.0-0.8) x10-3/uL Baso # (Auto) 0.1 (0.0-0.1) x10-3/uL PT (9.0-11.1) sec INR (1.00-1.24) Sodium 135 (135-145) mmol/L Potassium 4.0 (3.5-5.3) mmol/L Chloride 99 L (100-110) mmol/L Carbon Dioxide 30 (21-32) mmol/L BUN 18 (7-18) mg/dL Creatinine 1.0 (0.55-1.02) mg/dL Est Cr Clr Drug Dosing TNP Estimated GFR (MDRD) 53 L (>60) BUN/Creatinine Ratio 18.0 (9-20) Glucose 139 H (80-116) mg/dL Calcium 8.7 (8.6-10.2) mg/dL Magnesium (1.8-2.5) mg/dL Total Bilirubin 0.4 (0.1-1.3) mg/dL AST 18 (5-25) IU/L ALT 15 (12-36) U/L Alkaline Phosphatase 88 (56-112) IU/L Troponin I (4.0-60.3) pg/mL C-Reactive Protein 1.3 H (0.5-0.9) mg/dL NT-Pro-B Natriuret Pep (<=450) pg/mL Total Protein 7.2 (6.0-8.0) g/dL Albumin 3.1 L (3.2-4.6) g/dL Globulin 4.1 g/dL Albumin/Globulin Ratio 0.8 TSH, Ultra Sensitive (0.36-3.74) IU/mL Urine Color (YELLOW) Urine Appearance (CLEAR) Urine pH (5.0-6.5) Ur Specific [place] (1.010-1.025) Urine Protein (NEGATIVE) mg/dL Urine Glucose (UA) (NORMAL) mg/dL Urine Ketones (NEGATIVE) mg/dL Urine Occult Blood (NEGATIVE) Urine Nitrite (NEGATIVE) Urine Bilirubin (NEGATIVE) Urine Urobilinogen (NEGATIVE) mg/dL Ur Leukocyte Esterase (NEGATIVE) Urine WBC (0-5) Ur Squamous Epith Cells (NS,R,O) Urine Bacteria (NS) SARS-CoV-2 RNA (YOON) (NEGATIVE) 10/31/20 10/31/20 10/31/20 Range/Units 12:45 12:45 12:45 WBC (3.0-10.3) x10-3/uL RBC (3.60-5.20) x10(6)uL Hgb (11.4-15.5) g/dL Hct (34.2-48.2) % MCV (76.7-100.5) fL MCH (23.9-33.9) pg MCHC (31.9-34.8) g/dL RDW (12.3-16.5) % Plt Count (151-488) x10(3)uL MPV (7.1-12.4) fL Neut % (Auto) (30.8-76.2) % Lymph % (Auto) (18.4-52.1) % [place] % (Auto) (4.4-15.7) % Eos % (Auto) (0.6-8.1) % Baso % (Auto) (0.2-1.5) % Neut # (Auto) (1.5-6.3) x10-3/uL Lymph # (Auto) (1.0-4.4) x10-3/uL [place] # (Auto) (0.3-1.0) x10-3/uL Eos # (Auto) (0.0-0.8) x10-3/uL Baso # (Auto) (0.0-0.1) x10-3/uL PT 11.4 H (9.0-11.1) sec INR 1.06 (1.00-1.24) Sodium (135-145) mmol/L Potassium (3.5-5.3) mmol/L Chloride (100-110) mmol/L Carbon Dioxide (21-32) mmol/L BUN (7-18) mg/dL Creatinine (0.55-1.02) mg/dL Est Cr Clr Drug Dosing Estimated GFR (MDRD) (>60) BUN/Creatinine Ratio (9-20) Glucose (80-116) mg/dL Calcium (8.6-10.2) mg/dL Magnesium 1.5 L (1.8-2.5) mg/dL Total Bilirubin (0.1-1.3) mg/dL AST (5-25) IU/L ALT (12-36) U/L Alkaline Phosphatase (56-112) IU/L Troponin I 16.1 (4.0-60.3) pg/mL C-Reactive Protein (0.5-0.9) mg/dL NT-Pro-B Natriuret Pep 4592 H* (<=450) pg/mL Total Protein (6.0-8.0) g/dL Albumin (3.2-4.6) g/dL Globulin g/dL Albumin/Globulin Ratio TSH, Ultra Sensitive 2.09 (0.36-3.74) IU/mL Urine Color (YELLOW) Urine Appearance (CLEAR) Urine pH (5.0-6.5) Ur Specific [place] (1.010-1.025) Urine Protein (NEGATIVE) mg/dL Urine Glucose (UA) (NORMAL) mg/dL Urine Ketones (NEGATIVE) mg/dL Urine Occult Blood (NEGATIVE) Urine Nitrite (NEGATIVE) Urine Bilirubin (NEGATIVE) Urine Urobilinogen (NEGATIVE) mg/dL Ur Leukocyte Esterase (NEGATIVE) Urine WBC (0-5) Ur Squamous Epith Cells (NS,R,O) Urine Bacteria (NS) SARS-CoV-2 RNA (YOON) (NEGATIVE) 10/31/20 10/31/20 Range/Units 12:59 13:20 WBC (3.0-10.3) x10-3/uL RBC (3.60-5.20) x10(6)uL Hgb (11.4-15.5) g/dL Hct (34.2-48.2) % MCV (76.7-100.5) fL MCH (23.9-33.9) pg MCHC (31.9-34.8) g/dL RDW (12.3-16.5) % Plt Count (151-488) x10(3)uL MPV (7.1-12.4) fL Neut % (Auto) (30.8-76.2) % Lymph % (Auto) (18.4-52.1) % [place] % (Auto) (4.4-15.7) % Eos % (Auto) (0.6-8.1) % Baso % (Auto) (0.2-1.5) % Neut # (Auto) (1.5-6.3) x10-3/uL Lymph # (Auto) (1.0-4.4) x10-3/uL [place] # (Auto) (0.3-1.0) x10-3/uL Eos # (Auto) (0.0-0.8) x10-3/uL Baso # (Auto) (0.0-0.1) x10-3/uL PT (9.0-11.1) sec INR (1.00-1.24) Sodium (135-145) mmol/L Potassium (3.5-5.3) mmol/L Chloride (100-110) mmol/L Carbon Dioxide (21-32) mmol/L BUN (7-18) mg/dL Creatinine (0.55-1.02) mg/dL Est Cr Clr Drug Dosing Estimated GFR (MDRD) (>60) BUN/Creatinine Ratio (9-20) Glucose (80-116) mg/dL Calcium (8.6-10.2) mg/dL Magnesium (1.8-2.5) mg/dL Total Bilirubin (0.1-1.3) mg/dL AST (5-25) IU/L ALT (12-36) U/L Alkaline Phosphatase (56-112) IU/L Troponin I (4.0-60.3) pg/mL C-Reactive Protein (0.5-0.9) mg/dL NT-Pro-B Natriuret Pep (<=450) pg/mL Total Protein (6.0-8.0) g/dL Albumin (3.2-4.6) g/dL Globulin g/dL Albumin/Globulin Ratio TSH, Ultra Sensitive (0.36-3.74) IU/mL Urine Color Yellow (YELLOW) Urine Appearance Clear (CLEAR) Urine pH 7.0 H (5.0-6.5) Ur Specific [place] 1.010 (1.010-1.025) Urine Protein Negative (NEGATIVE) mg/dL Urine Glucose (UA) Normal (NORMAL) mg/dL Urine Ketones Negative (NEGATIVE) mg/dL Urine Occult Blood Negative (NEGATIVE) Urine Nitrite Negative (NEGATIVE) Urine Bilirubin Negative (NEGATIVE) Urine Urobilinogen Normal (NEGATIVE) mg/dL Ur Leukocyte Esterase Negative (NEGATIVE) Urine WBC 0-5 (0-5) Ur Squamous Epith Cells Few H (NS,R,O) Urine Bacteria Few H (NS) SARS-CoV-2 RNA (YOON) Negative (NEGATIVE) Result Diagrams: 10/31/20 12:45 10/31/20 12:45 Sepsis Event Note - Evaluation Sepsis Screening Result: No Definite Risk - Focused Exam Vital Signs: Vital Signs Temp Pulse Resp BP Pulse Ox 10/31/20 16:06 98.3 F 85 16 95 10/31/20 12:45 98.1 F 72 20 149/60 H 100 *Q Meaningful Use (ADM) - VTE Risk Assess *Q Each Risk Factor Represents 1 Point: Swollen Legs, Current, Obesity ( BMI > 25 kg/m2), Congestive heart failure (CHF) Total Score 1 Point Risk Factors: 3 Each Risk Factor Represents 2 Points: None Total Score 2 Point Risk Factors: 0 Each Risk Factor Represents 3 Points: Age 75 Years or Greater Total Score 3 Point Risk Factors: 3 Each Risk Factor Represents 5 Points: None Total Score 5 Point Risk Factors: 0 Venous Thromboembolism Risk Factor Score *Q: 6 - Problem List (1) Acute on chronic heart failure SNOMED Code(s): 278020384 ICD Code: I50.9 - HEART FAILURE, UNSPECIFIED Status: Acute Current Visit: Yes Problem Details: last echo done at [facility] 04/2019 (2) Elevated C-reactive protein (CRP) SNOMED Code(s): 340025658143172 ICD Code: R79.82 - ELEVATED C-REACTIVE PROTEIN (CRP) Status: Acute Current Visit: Yes (3) Chronic renal insufficiency SNOMED Code(s): 697442770 ICD Code: N18.9 - CHRONIC KIDNEY DISEASE, UNSPECIFIED Status: Chronic Current Visit: Yes (4) Elevated brain natriuretic peptide (BNP) level SNOMED Code(s): 461544440, 818349649 ICD Code: R79.89 - OTHER SPECIFIED ABNORMAL FINDINGS OF BLOOD CHEMISTRY Status: Acute Current Visit: Yes (5) Pulmonary edema SNOMED Code(s): 37508888 ICD Code: J81.1 - CHRONIC PULMONARY EDEMA Status: Acute Current Visit: Yes (6) HTN (hypertension) SNOMED Code(s): 10078923 ICD Code: I10 - ESSENTIAL (PRIMARY) HYPERTENSION Status: Chronic Current Visit: No Qualifiers: Hypertension type: essential hypertension Qualified Code(s): I10 - Essential (primary) hypertension (7) Dementia SNOMED Code(s): 34965267 ICD Code: F03.90 - UNSPECIFIED DEMENTIA WITHOUT BEHAVIORAL DISTURBANCE Status: Chronic Current Visit: Yes Problem List Initiated/Reviewed/Updated: Yes Orders Last 24hrs: Active Orders 24 hr Category Date Time Status Admission Status [Patient Status] [ADT] Routine ADT 10/31/20 15:11 Active Rincon Catheter Insertion [Insert Urinary Catheter] [OM. Care 10/31/20 16:15 Ordered PC] Q24H Height and Weight [RC] DAILY Care 10/31/20 16:06 Active Intake and Output [RC] QSHIFT Care 10/31/20 16:06 Active Oxygen Therapy [RC] PRN Care 10/31/20 16:06 Active Up With Assistance [RC] ASDIRECTED Care 10/31/20 16:06 Active Up to Chair [RC] ASDIRECTED Care 10/31/20 16:06 Active Urinary Catheter Assessment [RC] QSHIFT Care 10/31/20 16:09 Active VTE/DVT Education [RC] Per Unit Routine Care 10/31/20 16:06 Active Vital Signs [RC] Q4H Care 10/31/20 16:06 Active OT Evaluation and Treatment [CONS] Routine Cons 11/01/20 06:00 Active PT Evaluation and Treatment [CONS] Routine Cons 11/01/20 06:00 Active Regular Diet [DIET] Diet 10/31/20 Dinner Active Chest 1V Frontal [CR] Stat Exams 10/31/20 12:23 Taken BASIC METABOLIC PANEL,BMP [CHEM] Routine Lab 11/01/20 06:00 Ordered Furosemide [Lasix] Med 10/31/20 16:15 Active 40 mg IVPUSH DAILY Antiembolic Hose [OM.PC] Per Unit Routine Oth 10/31/20 16:06 Ordered Resuscitation Status Routine Resus Stat 10/31/20 16:06 Ordered Medication Orders Furosemide (Lasix) 40 mg IVPUSH DAILY BRANDON Assessment/Plan Comment:: 1. Admit for acute on chronic congestive heart failure, weight gain. 2. CHF: Lasix IV 40 mg daily first dose now and repeat in am, readjust as necessary. Repeat BMP in am. Daily weights, Rincon for strict I&Os. 3. Hypomagnesemia: Magnesium 400 mg at bedtime, repeat in am. 4. Regular diet. 5. DVT: TEDs BLE, Lovenox 40 mg SQ daily. 6. Gas: Simethicone scheduled. 7. CODE STATUS: DNR/DNI, advance directive sent over from [facility]. - Mortality Measure Prognosis:: Poor
[2020-10-31] MEDS ORDERED: Ibuprofen 400 MG Tab PO PRN (17:05)
[2020-10-31] MEDS ORDERED: Enoxaparin 40 MG/0.4 ML Syringe SUBCUT SCH (17:15)
[2020-10-31] MEDS ORDERED: Clotrimazole 1% Crm 15 GM Tube TOP PRN (17:16)
[2020-10-31] MEDS: QUEtiapine 25 MG Tab PO SCH (17:20)
[2020-10-31] MEDS: Furosemide 40 MG/4 ML VIAL IVPUSH SCH (17:20)
[2020-10-31] MEDS: Simethicone 80 MG Tab.Chew PO SCH ×3 (18:26→21:48)
[2020-10-31] MEDS: Potassium Chloride 10 MEQ Tab.ER PO SCH (20:48)
[2020-10-31] MEDS: Magnesium Oxide 400 MG Tab PO SCH (20:49)
[2020-10-31] MEDS: Pantoprazole 40 MG Tab.CR PO SCH (20:49)
[2020-10-31] MEDS: Metoprolol Succinate 100 MG Tab.ER PO SCH (20:49)
[2020-10-31] MEDS: Nystatin Crm 15 GM Tube TOP SCH (20:59)
[2020-10-31] MEDS ORDERED: Non-Formulary Medication 1 Each (Letrozole [Letrozole] 2.5 MG) PO SCH (21:00)
[2020-10-31] MEDS: Acetaminophen 500 MG Tab PO PRN (21:01)
[2020-11-01] MEDS: Simethicone 80 MG Tab.Chew PO SCH ×4 (09:13→20:19)
[2020-11-01] MEDS: Metoprolol Succinate 100 MG Tab.ER PO SCH ×2 (09:14→20:20)
[2020-11-01] MEDS: amLODIPine 2.5 MG Tab PO SCH (09:14)
[2020-11-01] MEDS: Nystatin Crm 15 GM Tube TOP SCH ×2 (09:15→20:19)
[2020-11-01] MEDS: Levothyroxine 50 MCG Tab PO SCH (09:15)
[2020-11-01] MEDS: Citalopram 10 MG Tab PO SCH (09:15)
[2020-11-01] MEDS: Cholecalciferol (Vitamin D3) 25 MCG Tab PO SCH (09:16)
[2020-11-01] MEDS: Multivitamin Tab PO SCH (09:16)
[2020-11-01] MEDS: Cyanocobalamin (Vitamin B12) 1,000 MCG Tab PO SCH (09:16)
[2020-11-01] MEDS: Furosemide 40 MG/4 ML VIAL IVPUSH SCH (09:19)
[2020-11-01] MEDS: QUEtiapine 25 MG Tab PO SCH ×2 (11:45→17:02)
[2020-11-01] MEDS: Acetaminophen 500 MG Tab PO PRN ×2 (14:33→20:21)
--- NOTE | 2020-11-01 15:18 | PCM.PN ---
- General Info Date of Service: 11/01/20 Subjective Update: Marni is down 4 lbs since admission, urinated over 2000 ml yesterday and 1500 ml so far today. Rincon was removed because with her dementia she was getting up every time to urinate because she was not aware of the Rincon, was becoming a fall risk so was removed this morning. She has been redirectable with staff, but she did not settle down even with Seroquel until about 1 am. She took a nap this morning. Denies any pain, had about 4-5 bowel movements and her stomach feels better. - Patient Data Vitals - Most Recent: Last Vital Signs Temp 98.2 F 11/01/20 09:00 Pulse 82 11/01/20 09:14 Resp 18 11/01/20 09:00 BP 138/74 11/01/20 09:14 Pulse Ox 93 L 11/01/20 09:00 Weight - Most Recent: 185 lb 6.4 oz I&O - Last 24 Hours: Intake & Output 11/01/20 11/01/20 11/01/20 06:59 14:59 22:59 Intake Total 100 Output Total 1300 1600 Balance -1300 -1500 Lab Results Last 24 Hours: Laboratory Results - last 24 hr 11/01/20 Range/Units 06:20 Sodium 137 (135-145) mmol/L Potassium 3.7 (3.5-5.3) mmol/L Chloride 100 (100-110) mmol/L Carbon Dioxide 32 (21-32) mmol/L BUN 16 (7-18) mg/dL Creatinine 0.9 (0.55-1.02) mg/dL Est Cr Clr Drug Dosing 35.81 mL/min Estimated GFR (MDRD) > 60 (>60) BUN/Creatinine Ratio 17.8 (9-20) Glucose 118 H (80-116) mg/dL Calcium 8.6 (8.6-10.2) mg/dL Magnesium 1.5 L (1.8-2.5) mg/dL Med Orders - Current: Current Medications Acetaminophen (Tylenol Extra Strength) 1,000 mg PO BID PRN PRN Reason: Pain Last Admin: 11/01/20 14:33 Dose: 1,000 mg Documented by: Amlodipine Besylate (Norvasc) 2.5 mg PO DAILY [facility] Last Admin: 11/01/20 09:14 Dose: 2.5 mg Documented by: Cholecalciferol (Vitamin D3) 25 mcg PO DAILY [facility] Last Admin: 11/01/20 09:16 Dose: 25 mcg Documented by: Citalopram Hydrobromide (Celexa) 30 mg PO DAILY [facility] Last Admin: 11/01/20 09:15 Dose: 30 mg Documented by: Clotrimazole (Clotrimazole 1%) 0 gm TOP BID PRN PRN Reason: Rash Cyanocobalamin (Vitamin B12) 1,000 mcg PO DAILY [facility] Last Admin: 11/01/20 09:16 Dose: 1,000 mcg Documented by: Enoxaparin Sodium (Lovenox) 40 mg SUBCUT DAILY@1800 [facility] Furosemide (Lasix) 40 mg IVPUSH DAILY [facility] Last Admin: 11/01/20 09:19 Dose: 40 mg Documented by: Ibuprofen (Motrin) 400 mg PO BID PRN PRN Reason: Pain Letrozole (Femara) 2.5 mg PO BEDTIME [facility] Levothyroxine Sodium (Synthroid) 50 mcg PO DAILY [facility] Last Admin: 11/01/20 09:15 Dose: 50 mcg Documented by: Magnesium Oxide (Magnesium Oxide) 400 mg PO BEDTIME [facility] Last Admin: 10/31/20 20:49 Dose: 400 mg Documented by: Metoprolol Succinate (Toprol Xl) 100 mg PO BID [facility] Last Admin: 11/01/20 09:14 Dose: 100 mg Documented by: Multivitamins/Minerals/Vitamin C (Tab-A-Johana) 1 tab PO DAILY [facility] Last Admin: 11/01/20 09:16 Dose: 1 tab Documented by: Nystatin (Nystatin Crm) 0 gm TOP BID [facility] Last Admin: 11/01/20 09:15 Dose: 1 applic Documented by: Pantoprazole Sodium (Protonix) 40 mg PO BEDTIME [facility] Last Admin: 10/31/20 20:49 Dose: 40 mg Documented by: Potassium Chloride (Klor-Con 10) 10 meq PO BEDTIME [facility] Last Admin: 10/31/20 20:48 Dose: 10 meq Documented by: Quetiapine Fumarate (Seroquel) 25 mg PO BID@1200,1700 [facility] Last Admin: 11/01/20 11:45 Dose: 25 mg Documented by: Senna/Docusate Sodium (Senna Plus) 1 tab PO Q48H [facility] Simethicone (Simethicone) 80 mg PO QIDPCANDBED [facility] Last Admin: 11/01/20 14:16 Dose: 80 mg Documented by: Discontinued Medications Acetaminophen (Tylenol) 650 mg PO NOW ONE Stop: 10/31/20 15:36 Last Admin: 10/31/20 15:37 Dose: 650 mg Documented by: Enoxaparin Sodium (Lovenox) 40 mg SUBCUT DAILY [facility] Last Admin: 10/31/20 18:26 Dose: 40 mg Documented by: Letrozole (Femara) 2.5 mg PO .STK-MED ONE Stop: 10/31/20 20:52 Morphine Sulfate (Morphine) 2 mg IVPUSH ONETIME ONE Stop: 10/31/20 15:26 Last Admin: 10/31/20 15:36 Dose: Not Given Documented by: Non-Formulary Medication (Letrozole [Letrozole]) 2.5 mg PO BEDTIME [facility] Last Admin: 10/31/20 20:50 Dose: 2.5 mg Documented by: - Exam Lungs: Normal Respiratory Effort, Decreased Breath Sounds (BLL), Crackles (BLL). No: Wheezing Cardiovascular: Regular Rate, Regular Rhythm GI/Abdominal Exam: Normal Bowel Sounds, Soft, Non-Tender, No Distention Extremities: Pedal Edema (2+ BLE to her knees.) Peripheral Pulses: 2+: Radial (L), Radial (R) Sepsis Event Note - Evaluation Sepsis Screening Result: No Definite Risk - Focused Exam Vital Signs: Vital Signs Temp Pulse Pulse Resp BP BP Pulse Ox 11/01/20 09:14 82 138/74 11/01/20 09:00 98.2 F 80 18 138/74 93 L 11/01/20 05:30 98 F 79 20 135/69 91 L - Problem List & Annotations (1) Acute on chronic heart failure SNOMED Code(s): 411101459 Code(s): I50.9 - HEART FAILURE, UNSPECIFIED Status: Acute Current Visit: Yes Annotation/Comment:: last echo done at [facility] 04/2019 (2) Elevated C-reactive protein (CRP) SNOMED Code(s): 361136405488637 Code(s): R79.82 - ELEVATED C-REACTIVE PROTEIN (CRP) Status: Acute Current Visit: Yes (3) Chronic renal insufficiency SNOMED Code(s): 686586704 Code(s): N18.9 - CHRONIC KIDNEY DISEASE, UNSPECIFIED Status: Chronic Current Visit: Yes (4) Elevated brain natriuretic peptide (BNP) level SNOMED Code(s): 793156403, 835701585 Code(s): R79.89 - OTHER SPECIFIED ABNORMAL FINDINGS OF BLOOD CHEMISTRY Status: Acute Current Visit: Yes (5) Pulmonary edema SNOMED Code(s): 29673396 Code(s): J81.1 - CHRONIC PULMONARY EDEMA Status: Acute Current Visit: Yes (6) HTN (hypertension) SNOMED Code(s): 47417493 Code(s): I10 - ESSENTIAL (PRIMARY) HYPERTENSION Status: Chronic Current Visit: No Qualifiers: Hypertension type: essential hypertension Qualified Code(s): I10 - Essential (primary) hypertension (7) Dementia SNOMED Code(s): 99530868 Code(s): F03.90 - UNSPECIFIED DEMENTIA WITHOUT BEHAVIORAL DISTURBANCE Status: Chronic Current Visit: Yes - Problem List Review Problem List Initiated/Reviewed/Updated: Yes - My Orders Last 24 Hours: My Active Orders 10/31/20 16:06 Height and Weight [RC] 06 Intake and Output [RC] 06,14,22 Oxygen Therapy [RC] PRN Up With Assistance [RC] ASDIRECTED Up to Chair [RC] ASDIRECTED VTE/DVT Education [RC] Per Unit Routine Vital Signs [RC] QSHIFT Resuscitation Status Routine 10/31/20 Dinner Regular Diet [DIET] Furosemide [Lasix] 40 mg IVPUSH DAILY 10/31/20 17:00 Acetaminophen [Tylenol Extra Strength] 1,000 mg PO BID PRN QUEtiapine [SEROqueL] 25 mg PO BID@1200,1700 10/31/20 17:05 Ibuprofen [Motrin] 400 mg PO BID PRN 10/31/20 17:16 Clotrimazole [Clotrimazole 1%] 0 gm TOP BID PRN 10/31/20 19:00 Simethicone 80 mg PO QIDPCANDBED 10/31/20 21:00 Magnesium Oxide 400 mg PO BEDTIME Metoprolol Succinate [Toprol XL] 100 mg PO BID Nystatin [Nystatin Crm] 0 gm TOP BID Pantoprazole [ProTONIX] 40 mg PO BEDTIME Potassium Chloride [Klor-Con 10] 10 meq PO BEDTIME 01/19/21 06:00 OT Evaluation and Treatment [CONS] Routine PT Evaluation and Treatment [CONS] Routine 11/01/20 09:00 Cholecalciferol (Vitamin D3) [Vitamin D3] 25 mcg PO DAILY Citalopram [Celexa] 30 mg PO DAILY Cyanocobalamin (Vitamin B12) [Vitamin B12] 1,000 mcg PO DAILY Levothyroxine [Synthroid] 50 mcg PO DAILY Multivitamins [Tab-A-Johana] 1 tab PO DAILY amLODIPine [Norvasc] 2.5 mg PO DAILY 11/01/20 09:44 EDEN Bandage [Elastic Wrap] [OM.PC] Routine 11/01/20 18:00 Enoxaparin [Lovenox] 40 mg SUBCUT DAILY@1800 11/01/20 21:00 Letrozole [Femara] 2.5 mg PO BEDTIME 11/02/20 09:00 Docusate Sodium/Sennosides [Senna Plus] 1 tab PO Q48H - Plan Plan:: 1. CHF: Lasix IV 40 mg daily, Repeat BMP in am. Daily weights, I&Os. 2. Hypomagnesemia: Magnesium 400 mg bid, repeat in am. 3. DVT: TEDs BLE, Lovenox 40 mg SQ daily.
[2020-11-01] MEDS: Enoxaparin 40 MG/0.4 ML Syringe SUBCUT SCH (18:22)
[2020-11-01] MEDS: Potassium Chloride 10 MEQ Tab.ER PO SCH (20:18)
[2020-11-01] MEDS: Magnesium Oxide 400 MG Tab PO SCH (20:19)
[2020-11-01] MEDS: Pantoprazole 40 MG Tab.CR PO SCH (20:19)
[2020-11-02] MEDS: Furosemide 40 MG/4 ML VIAL IVPUSH SCH (09:43)
[2020-11-02] MEDS: Citalopram 10 MG Tab PO SCH (09:43)
[2020-11-02] MEDS: amLODIPine 2.5 MG Tab PO SCH (09:43)
[2020-11-02] MEDS: Cyanocobalamin (Vitamin B12) 1,000 MCG Tab PO SCH (09:44)
[2020-11-02] MEDS: Simethicone 80 MG Tab.Chew PO SCH ×4 (09:44→20:23)
[2020-11-02] MEDS: Multivitamin Tab PO SCH (09:44)
[2020-11-02] MEDS: Metoprolol Succinate 100 MG Tab.ER PO SCH ×2 (09:44→20:25)
[2020-11-02] MEDS: Nystatin Crm 15 GM Tube TOP SCH ×2 (09:44→20:23)
[2020-11-02] MEDS: Cholecalciferol (Vitamin D3) 25 MCG Tab PO SCH (09:44)
[2020-11-02] MEDS: Levothyroxine 50 MCG Tab PO SCH (09:45)
[2020-11-02] MEDS: QUEtiapine 25 MG Tab PO SCH ×2 (13:24→16:34)
--- NOTE | 2020-11-02 16:02 | PCM.PN ---
- General Info Date of Service: 11/02/20 Subjective Update: Marni having bad headache & body aches today, had Covid vaccine on at [facility]. Has had good urine output, down to 184 lbs, Megan her daughter states that is her baseline weight. Passing gas, not complaining of abdomen hurting today. Discussed with daughter about discharge, most likely tomorrow. - Patient Data Vitals - Most Recent: Last Vital Signs Temp 98.2 F 11/02/20 08:00 Pulse 84 11/02/20 09:44 Resp 18 11/02/20 08:00 BP 140/68 11/02/20 09:44 Pulse Ox 96 11/02/20 08:00 Weight - Most Recent: 184 lb I&O - Last 24 Hours: Intake & Output 11/02/20 11/02/20 11/02/20 06:59 14:59 22:59 Output Total 200 1500 Balance -200 -1500 Lab Results Last 24 Hours: Laboratory Results - last 24 hr 11/02/20 11/02/20 Range/Units 06:00 06:30 Sodium 139 (135-145) mmol/L Potassium 4.0 (3.5-5.3) mmol/L Chloride 102 (100-110) mmol/L Carbon Dioxide 31 (21-32) mmol/L BUN 19 H (7-18) mg/dL Creatinine 1.1 H (0.55-1.02) mg/dL Est Cr Clr Drug Dosing 29.30 mL/min Estimated GFR (MDRD) 48 L (>60) BUN/Creatinine Ratio 17.3 (9-20) Glucose 128 H (80-116) mg/dL Calcium 8.2 L (8.6-10.2) mg/dL Magnesium 1.7 L (1.8-2.5) mg/dL Med Orders - Current: Current Medications Acetaminophen (Tylenol Extra Strength) 1,000 mg PO BID PRN PRN Reason: Pain Last Admin: 11/01/20 20:21 Dose: 1,000 mg Documented by: Amlodipine Besylate (Norvasc) 2.5 mg PO DAILY [facility] Last Admin: 11/02/20 09:43 Dose: 2.5 mg Documented by: Cholecalciferol (Vitamin D3) 25 mcg PO DAILY [facility] Last Admin: 11/02/20 09:44 Dose: 25 mcg Documented by: Citalopram Hydrobromide (Celexa) 30 mg PO DAILY [facility] Last Admin: 11/02/20 09:43 Dose: 30 mg Documented by: Clotrimazole (Clotrimazole 1%) 0 gm TOP BID PRN PRN Reason: Rash Cyanocobalamin (Vitamin B12) 1,000 mcg PO DAILY [facility] Last Admin: 11/02/20 09:44 Dose: 1,000 mcg Documented by: Enoxaparin Sodium (Lovenox) 40 mg SUBCUT DAILY@1800 [facility] Last Admin: 11/01/20 18:22 Dose: 40 mg Documented by: Furosemide (Lasix) 40 mg IVPUSH DAILY [facility] Last Admin: 11/02/20 09:43 Dose: 40 mg Documented by: Ibuprofen (Motrin) 400 mg PO BID PRN PRN Reason: Pain Letrozole (Femara) 2.5 mg PO BEDTIME [facility] Last Admin: 11/01/20 23:15 Dose: 2.5 mg Documented by: Levothyroxine Sodium (Synthroid) 50 mcg PO DAILY [facility] Last Admin: 11/02/20 09:45 Dose: 50 mcg Documented by: Magnesium Oxide (Magnesium Oxide) 400 mg PO BEDTIME [facility] Last Admin: 11/01/20 20:19 Dose: 400 mg Documented by: Metoprolol Succinate (Toprol Xl) 100 mg PO BID [facility] Last Admin: 11/02/20 09:44 Dose: 100 mg Documented by: Multivitamins/Minerals/Vitamin C (Tab-A-Johana) 1 tab PO DAILY [facility] Last Admin: 11/02/20 09:44 Dose: 1 tab Documented by: Nystatin (Nystatin Crm) 0 gm TOP BID [facility] Last Admin: 11/02/20 09:44 Dose: 1 applic Documented by: Pantoprazole Sodium (Protonix) 40 mg PO BEDTIME [facility] Last Admin: 11/01/20 20:19 Dose: 40 mg Documented by: Potassium Chloride (Klor-Con 10) 10 meq PO BEDTIME [facility] Last Admin: 11/01/20 20:18 Dose: 10 meq Documented by: Quetiapine Fumarate (Seroquel) 25 mg PO BID@1200,1700 [facility] Last Admin: 11/02/20 13:24 Dose: 25 mg Documented by: Senna/Docusate Sodium (Senna Plus) 1 tab PO Q48H [facility] Last Admin: 11/02/20 09:44 Dose: 1 tab Documented by: Simethicone (Simethicone) 80 mg PO QIDPCANDBED [facility] Last Admin: 11/02/20 13:25 Dose: 80 mg Documented by: Discontinued Medications Acetaminophen (Tylenol) 650 mg PO NOW ONE Stop: 10/31/20 15:36 Last Admin: 10/31/20 15:37 Dose: 650 mg Documented by: Enoxaparin Sodium (Lovenox) 40 mg SUBCUT DAILY [facility] Last Admin: 10/31/20 18:26 Dose: 40 mg Documented by: Letrozole (Femara) 2.5 mg PO .STK-MED ONE Stop: 10/31/20 20:52 Morphine Sulfate (Morphine) 2 mg IVPUSH ONETIME ONE Stop: 10/31/20 15:26 Last Admin: 10/31/20 15:36 Dose: Not Given Documented by: Non-Formulary Medication (Letrozole [Letrozole]) 2.5 mg PO BEDTIME [facility] Last Admin: 10/31/20 20:50 Dose: 2.5 mg Documented by: - Exam General: Alert, Oriented (person, not place or time, pleasantly confused), Cooperative, No Acute Distress Lungs: Clear to Auscultation, Normal Respiratory Effort, Decreased Breath Sounds (bibasilar). No: Crackles, Wheezing Cardiovascular: Regular Rate, Regular Rhythm GI/Abdominal Exam: Normal Bowel Sounds, Soft, Non-Tender, No Distention Extremities: Pedal Edema (1+ BLE to knees) Peripheral Pulses: 2+: Radial (L), Radial (R) Sepsis Event Note - Evaluation Sepsis Screening Result: No Definite Risk - Focused Exam Vital Signs: Vital Signs Temp Pulse Pulse Resp BP BP Pulse Ox 11/02/20 09:44 84 140/68 11/02/20 09:43 140/72 11/02/20 08:00 98.2 F 78 18 125/68 96 - Problem List & Annotations (1) Acute on chronic heart failure SNOMED Code(s): 597669759 Code(s): I50.9 - HEART FAILURE, UNSPECIFIED Status: Acute Current Visit: Yes Annotation/Comment:: last echo done at [facility] 04/2019, will need repeat done as outpatient (2) Elevated C-reactive protein (CRP) SNOMED Code(s): 528848276516756 Code(s): R79.82 - ELEVATED C-REACTIVE PROTEIN (CRP) Status: Acute Current Visit: Yes (3) Chronic renal insufficiency SNOMED Code(s): 137732584 Code(s): N18.9 - CHRONIC KIDNEY DISEASE, UNSPECIFIED Status: Chronic Current Visit: Yes (4) Elevated brain natriuretic peptide (BNP) level SNOMED Code(s): 789423223, 340673848 Code(s): R79.89 - OTHER SPECIFIED ABNORMAL FINDINGS OF BLOOD CHEMISTRY Status: Acute Current Visit: Yes (5) Pulmonary edema SNOMED Code(s): 38636183 Code(s): J81.1 - CHRONIC PULMONARY EDEMA Status: Acute Current Visit: Yes (6) HTN (hypertension) SNOMED Code(s): 53356426 Code(s): I10 - ESSENTIAL (PRIMARY) HYPERTENSION Status: Chronic Current Visit: No Qualifiers: Hypertension type: essential hypertension Qualified Code(s): I10 - Essential (primary) hypertension (7) Dementia SNOMED Code(s): 07471800 Code(s): F03.90 - UNSPECIFIED DEMENTIA WITHOUT BEHAVIORAL DISTURBANCE Status: Chronic Current Visit: Yes - Problem List Review Problem List Initiated/Reviewed/Updated: Yes - My Orders Last 24 Hours: My Active Orders 11/01/20 18:00 Enoxaparin [Lovenox] 40 mg SUBCUT DAILY@1800 11/01/20 21:00 Letrozole [Femara] 2.5 mg PO BEDTIME 11/02/20 09:00 Docusate Sodium/Sennosides [Senna Plus] 1 tab PO Q48H - Plan Plan:: 1. CHF: Lasix IV 40 mg change to orals this afternoon, Repeat BMP in am. Daily weights, I&Os. 2. Hypomagnesemia: Magnesium 400 mg bid, repeat in am. Has come up to 1.7. 3. DVT: TEDs BLE, Lovenox 40 mg SQ daily. 4. Headache/body aches: covid negative on admission, repeat tomorrow morning. Had vaccine on . 5. Discharge: back to [facility] tomorrow at 1400 with daughter.
[2020-11-02] MEDS: Furosemide 20 MG Tab PO SCH (16:34)
[2020-11-02] MEDS: Enoxaparin 40 MG/0.4 ML Syringe SUBCUT SCH (18:30)
[2020-11-02] MEDS: Potassium Chloride 10 MEQ Tab.ER PO SCH (20:23)
[2020-11-02] MEDS: Pantoprazole 40 MG Tab.CR PO SCH (20:23)
[2020-11-02] MEDS: Magnesium Oxide 400 MG Tab PO SCH (20:23)
[2020-11-02] MEDS: Acetaminophen 500 MG Tab PO PRN (23:08)
[2020-11-03] MEDS: Nystatin Crm 15 GM Tube TOP SCH (08:13)
[2020-11-03] MEDS: Citalopram 10 MG Tab PO SCH (08:13)
[2020-11-03] MEDS: amLODIPine 2.5 MG Tab PO SCH (08:13)
[2020-11-03] MEDS: Simethicone 80 MG Tab.Chew PO SCH ×2 (08:14→12:55)
[2020-11-03] MEDS: Cholecalciferol (Vitamin D3) 25 MCG Tab PO SCH (08:15)
[2020-11-03] MEDS: Cyanocobalamin (Vitamin B12) 1,000 MCG Tab PO SCH (08:15)
[2020-11-03] MEDS: Metoprolol Succinate 100 MG Tab.ER PO SCH (08:15)
[2020-11-03] MEDS: Levothyroxine 50 MCG Tab PO SCH (08:15)
[2020-11-03] MEDS: Multivitamin Tab PO SCH (08:15)
[2020-11-03] MEDS ORDERED: Magnesium Oxide 400 MG Tab PO SCH (09:00)
[2020-11-03] MEDS ORDERED: Furosemide 40 MG Tab PO SCH (09:00)
--- NOTE | 2020-11-03 12:36 | PCM.DCSUM1 ---
Discharge Summary - Hospital Course HPI Initial Comments: Marni was brought in by daughter for increased weight gain of 6 lbs over the past week, but overall has increased over the past month. Her last Echo was done at [facility] 04/2019 for her left mastectomy, she was due to have some cardiac interventions but that was postponed for her mastectomy then did not get done. History of CAD & PVD. Had increased dose of Lasix over the past few weeks, has been on for 2 months. Had increasing shortness of breath, swelling in her legs to point that she was having trouble walking. Complains of abdominal pain, Lara her daughter states she complains of gas frequently. She had history of constipation but the medications she was on were causing more loose stools so they changed her to every other day dosing, which has kept her regular. Lara is power of compliance attorney, healthcare agent for her mom. Marni lives at [facility] an apartment, daughter does pay for hourly rounding on her, she has debated on moving her to memory care unit. Labs in ER significant for proBNP 4592, troponin & Covid negative, Magnesium 1.5, CRP 1.3, creatinine 1.0, BUN 18. CXR some pulmonary edema, official report pending. Diagnosis: Stroke: No - Discharge Data Discharge Date: 11/03/20 ([facility] Home Health) Discharge Disposition: Home, W Home Health Agency 06 Condition: Stable - Referral to Home Health Date of Face to Face Encounter: 11/03/20 Reason for Homebound Status: [facility] Primary Care Physician: Elva Ledesma NP Skilled Need: nursing assessment, management, medications & teaching for congestive heart failure, possible palliative care for CHF. - Discharge Diagnosis/Problem(s) (1) Acute on chronic heart failure SNOMED Code(s): 016062675 ICD Code: I50.9 - HEART FAILURE, UNSPECIFIED Status: Acute Current Visit: Yes Problem Details: last echo done at [facility] 04/2019, will need repeat done as outpatient (2) Elevated C-reactive protein (CRP) SNOMED Code(s): 841278501351741 ICD Code: R79.82 - ELEVATED C-REACTIVE PROTEIN (CRP) Status: Acute Current Visit: Yes (3) Chronic renal insufficiency SNOMED Code(s): 610506543 ICD Code: N18.9 - CHRONIC KIDNEY DISEASE, UNSPECIFIED Status: Chronic Current Visit: Yes (4) Elevated brain natriuretic peptide (BNP) level SNOMED Code(s): 129342760, 074460965 ICD Code: R79.89 - OTHER SPECIFIED ABNORMAL FINDINGS OF BLOOD CHEMISTRY Status: Acute Current Visit: Yes (5) Pulmonary edema SNOMED Code(s): 66193992 ICD Code: J81.1 - CHRONIC PULMONARY EDEMA Status: Acute Current Visit: Yes (6) HTN (hypertension) SNOMED Code(s): 50321965 ICD Code: I10 - ESSENTIAL (PRIMARY) HYPERTENSION Status: Chronic Current Visit: No Qualifiers: Hypertension type: essential hypertension Qualified Code(s): I10 - Essential (primary) hypertension (7) Dementia SNOMED Code(s): 87990551 ICD Code: F03.90 - UNSPECIFIED DEMENTIA WITHOUT BEHAVIORAL DISTURBANCE Status: Chronic Current Visit: Yes - Patient Summary/Data Consults: Consultations 11/01/20 06:00 OT Evaluation and Treatment [CONS] Routine Please Evaluate and Treat. OT Reason for Consult: ADL's This query below is only for informational purposes and is not editable. Admission Diagnosis/Problem: Heart failure PT Evaluation and Treatment [CONS] Routine Please Evaluate and Treat. PT Reason for Consult: Ambulation This query below is only for informational purposes and is not editable. Admission Diagnosis/Problem: Heart failure Hospital Course: Started on Lasix 40 mg IV daily, has urinated over 2000 ml per day, weight is down to 183 lbs. Her magnesium has stayed low even with supplementation was 1.5 at admission, came up to 1.7 and 1.6 today even with twice a day dosing. She had Rincon initially for strict I&Os but was getting it tangled with things in her room, felt she had to pee and no awareness that it was in, so removed next morning. Her creatinine bumped up to 1.1 but has remained there yesterday and today. Potassium is in the normal range. Had 4-5 bowel movements next day after admission, not complaining of abdomen hurting. Had given Simethicone for gas but patient didn't like the taste of it. She was complaining of headache & body aches yesterday and today, repeated Covid test and obtained Influenza test both were negative. She had received Covid vaccine on . Close follow up with Elva Ledesma NP at [facility] for Saturday or Saturday next week for recheck of her BMP, Magnesium. - Patient Instructions Diet: Usual Diet as Tolerated Activity: As Tolerated Notify Provider of: Swelling and Redness Other/Special Instructions: Follow with Elva Ledesma NP on tuesday 11/07 or Friday 11/10 for recheck of basic metobolic panel and magnesium; also weight check. - Discharge Plan *PRESCRIPTION DRUG MONITORING PROGRAM REVIEWED*: Not Applicable *COPY OF PRESCRIPTION DRUG MONITORING REPORT IN PATIENT ROB: Not Applicable Prescriptions/Med Rec: Magnesium Oxide 400 mg PO BID #60 tablet Home Medications: Home Meds Aspirin [Halfprin] 81 mg PO DAILY 04/07/18 [History] Levothyroxine [Synthroid] 50 mcg PO DAILY 04/07/18 [History] Metoprolol Succinate [Toprol Xl] 100 mg PO BID 04/07/18 [History] amLODIPine Besylate [Norvasc] 2.5 mg PO DAILY 04/07/18 [History] Letrozole 2.5 mg PO BEDTIME 01/27/19 [History] Acetaminophen [Tylenol Extra Strength] 1,000 mg PO BID PRN 10/31/20 [History] Cholecalciferol (Vitamin D3) [Vitamin D3] 25 mcg PO DAILY 10/31/20 [History] Citalopram [Citalopram HBr] 30 mg PO DAILY 10/31/20 [History] Clotrimazole [Clotrimazole 1%] 1 applic TOP BID PRN 10/31/20 [History] Cyanocobalamin (Vitamin B-12) [Vitamin B-12] 1,000 mcg PO DAILY 10/31/20 [History] Furosemide [Lasix] 20 mg PO DAILY@1200 10/31/20 [History] Furosemide [Lasix] 40 mg PO DAILY 10/31/20 [History] Ibuprofen 400 mg PO BID PRN 10/31/20 [History] Multivitamin [Gummi Bear Multivitamin] 1 tab PO DAILY 10/31/20 [History] Nystatin [Nystatin Crm] 1 applic TOP BID PRN 10/31/20 [History] Omeprazole 20 mg PO BEDTIME 10/31/20 [History] Potassium Chloride [Klor-Con 10] 10 meq PO BEDTIME 10/31/20 [History] QUEtiapine [SEROquel] 25 mg PO BID@1200,1700 10/31/20 [History] Sennosides/Docusate Sodium [Senna-S] 1 tab PO Q48H 10/31/20 [History] Magnesium Oxide 400 mg PO BID #60 tablet 11/03/20 [Rx] Oxygen Therapy Mode: Room Air Patient Handouts: Venous Thromboembolism Prevention Forms: ED Department Discharge Referrals: Elva Ledesma NP [Primary Care Provider] - - Discharge Summary/Plan Comment DC Time >30 min.: No - General Info Date of Service: 11/03/20 Subjective Update: She is complaining of headache and body aches again today, denies cough or fever. Has been urinating well. Had switched over to orals yesterday. - Patient Data Vitals - Most Recent: Last Vital Signs Temp 98.1 F 11/03/20 08:15 Pulse 61 11/03/20 11:07 Resp 16 11/03/20 08:15 BP 135/64 11/03/20 11:07 Pulse Ox 94 L 11/03/20 08:15 Weight - Most Recent: 183 lb 14.4 oz I&O - Last 24 hours: Intake & Output 11/02/20 11/03/20 11/03/20 22:59 06:59 14:59 Intake Total 240 Output Total 800 760 Balance -560 -760 Lab Results - Last 24 hrs: Laboratory Results - last 24 hr 11/02/20 11/03/20 11/03/20 Range/Units 06:00 05:45 06:30 Sodium 139 (135-145) mmol/L Potassium 4.0 (3.5-5.3) mmol/L Chloride 101 (100-110) mmol/L Carbon Dioxide 32 (21-32) mmol/L BUN 19 H (7-18) mg/dL Creatinine 1.1 H (0.55-1.02) mg/dL Est Cr Clr Drug Dosing 29.30 mL/min Estimated GFR (MDRD) 48 L (>60) BUN/Creatinine Ratio 17.3 (9-20) Glucose 109 (80-116) mg/dL Calcium 8.3 L (8.6-10.2) mg/dL Magnesium 1.7 L 1.6 L (1.8-2.5) mg/dL SARS-CoV-2 RNA (YOON) Negative (NEGATIVE) NIKKI Results - Last 24 hrs: Microbiology 11/03/20 09:10 Influenza Type A Antigen Screen - Final Nasopharyngeal Swab NEGATIVE INFLUENZA A VIRUS AG REFERENCE RANGE: NEGATIVE Influenza Type B Antigen Screen - Final NEGATIVE INFLUENZA B VIRUS AG REFERENCE RANGE: NEGATIVE Med Orders - Current: Current Medications Acetaminophen (Tylenol Extra Strength) 1,000 mg PO BID PRN PRN Reason: Pain Last Admin: 11/02/20 23:08 Dose: 1,000 mg Documented by: Amlodipine Besylate (Norvasc) 2.5 mg PO DAILY [facility] Last Admin: 11/03/20 08:13 Dose: 2.5 mg Documented by: Cholecalciferol (Vitamin D3) 25 mcg PO DAILY [facility] Last Admin: 11/03/20 08:15 Dose: 25 mcg Documented by: Citalopram Hydrobromide (Celexa) 30 mg PO DAILY [facility] Last Admin: 11/03/20 08:13 Dose: 30 mg Documented by: Clotrimazole (Clotrimazole 1%) 0 gm TOP BID PRN PRN Reason: Rash Cyanocobalamin (Vitamin B12) 1,000 mcg PO DAILY [facility] Last Admin: 11/03/20 08:15 Dose: 1,000 mcg Documented by: Enoxaparin Sodium (Lovenox) 40 mg SUBCUT DAILY@1800 [facility] Last Admin: 11/02/20 18:30 Dose: 40 mg Documented by: Furosemide (Lasix) 20 mg PO DAILY@1200 [facility] Last Admin: 11/02/20 16:34 Dose: 20 mg Documented by: Furosemide (Lasix) 40 mg PO DAILY [facility] Last Admin: 11/03/20 08:13 Dose: 40 mg Documented by: Ibuprofen (Motrin) 400 mg PO BID PRN PRN Reason: Pain Last Admin: 11/02/20 23:09 Dose: 400 mg Documented by: Letrozole (Femara) 2.5 mg PO BEDTIME [facility] Last Admin: 11/02/20 20:23 Dose: 2.5 mg Documented by: Levothyroxine Sodium (Synthroid) 50 mcg PO DAILY [facility] Last Admin: 11/03/20 08:15 Dose: 50 mcg Documented by: Magnesium Oxide (Magnesium Oxide) 400 mg PO BID [facility] Last Admin: 11/03/20 09:07 Dose: 400 mg Documented by: Metoprolol Succinate (Toprol Xl) 100 mg PO BID [facility] Last Admin: 11/03/20 08:15 Dose: 100 mg Documented by: Multivitamins/Minerals/Vitamin C (Tab-A-Johana) 1 tab PO DAILY [facility] Last Admin: 11/03/20 08:15 Dose: 1 tab Documented by: Nystatin (Nystatin Crm) 0 gm TOP BID [facility] Last Admin: 11/03/20 08:13 Dose: 1 applic Documented by: Pantoprazole Sodium (Protonix) 40 mg PO BEDTIME [facility] Last Admin: 11/02/20 20:23 Dose: 40 mg Documented by: Potassium Chloride (Klor-Con 10) 10 meq PO BEDTIME [facility] Last Admin: 11/02/20 20:23 Dose: 10 meq Documented by: Quetiapine Fumarate (Seroquel) 25 mg PO BID@1200,1700 [facility] Last Admin: 11/02/20 16:34 Dose: 25 mg Documented by: Senna/Docusate Sodium (Senna Plus) 1 tab PO Q48H [facility] Last Admin: 11/02/20 09:44 Dose: 1 tab Documented by: Simethicone (Simethicone) 80 mg PO QIDPCANDBED [facility] Last Admin: 11/03/20 08:14 Dose: 80 mg Documented by: Discontinued Medications Acetaminophen (Tylenol) 650 mg PO NOW ONE Stop: 10/31/20 15:36 Last Admin: 10/31/20 15:37 Dose: 650 mg Documented by: Enoxaparin Sodium (Lovenox) 40 mg SUBCUT DAILY [facility] Last Admin: 10/31/20 18:26 Dose: 40 mg Documented by: Furosemide (Lasix) 40 mg IVPUSH DAILY [facility] Last Admin: 11/02/20 09:43 Dose: 40 mg Documented by: Letrozole (Femara) 2.5 mg PO .STK-MED ONE Stop: 10/31/20 20:52 Magnesium Oxide (Magnesium Oxide) 400 mg PO BEDTIME [facility] Last Admin: 11/02/20 20:23 Dose: 400 mg Documented by: Morphine Sulfate (Morphine) 2 mg IVPUSH ONETIME ONE Stop: 10/31/20 15:26 Last Admin: 10/31/20 15:36 Dose: Not Given Documented by: Non-Formulary Medication (Letrozole [Letrozole]) 2.5 mg PO BEDTIME [facility] Last Admin: 01/18/21 20:50 Dose: 2.5 mg Documented by: - Exam General: Reports: Alert, Oriented (person, pleasantly confused, redirectable.), Cooperative Lungs: Reports: Clear to Auscultation, Normal Respiratory Effort Cardiovascular: Reports: Regular Rate, Regular Rhythm GI/Abdominal Exam: Normal Bowel Sounds, Soft, Non-Tender, No Distention Extremities: Pedal Edema (1+ BLE) Skin: Reports: Warm, Dry, Intact
[2020-11-03] MEDS: Furosemide 20 MG Tab PO SCH (12:55)
[2020-11-03] MEDS: QUEtiapine 25 MG Tab PO SCH (12:55)
== END 2020-11-03 14:20 | disposition home health service (06) | DRG 293 ==
LOC: FB.ED 12:06 → FB.MS 15:11
PROVIDERS: ADMIT Emergency Medicine; ATTEND Family Medicine
DX: I13.0 Hypertensive heart and chronic kidney disease with heart failure and stage 1 through stage 4 chronic kidney disease, or unspecified chronic kidney disease (principal); I50.9 Heart failure, unspecified; E11.22 Type 2 diabetes mellitus with diabetic chronic kidney disease; E11.65 Type 2 diabetes mellitus with hyperglycemia; E83.42 Hypomagnesemia; D64.9 Anemia, unspecified; N18.9 Chronic kidney disease, unspecified; R79.82 Elevated C-reactive protein (CRP); Z66 Do not resuscitate; F03.90 Unspecified dementia, unspecified severity, without behavioral disturbance, psychotic disturbance, mood disturbance, and anxiety; H54.7 Unspecified visual loss; E78.00 Pure hypercholesterolemia, unspecified; M19.90 Unspecified osteoarthritis, unspecified site; E88.09 Other disorders of plasma-protein metabolism, not elsewhere classified; M79.7 Fibromyalgia; R51.9 Headache, unspecified; F41.9 Anxiety disorder, unspecified; E03.9 Hypothyroidism, unspecified; Z85.3 Personal history of malignant neoplasm of breast; Z90.49 Acquired absence of other specified parts of digestive tract; Z90.710 Acquired absence of both cervix and uterus; Z85.41 Personal history of malignant neoplasm of cervix uteri; Z88.6 Allergy status to analgesic agent; Z88.1 Allergy status to other antibiotic agents; Z88.0 Allergy status to penicillin; Z79.01 Long term (current) use of anticoagulants; Z90.10 Acquired absence of unspecified breast and nipple; Z88.8 Allergy status to other drugs, medicaments and biological substances; Z79.84 Long term (current) use of oral hypoglycemic drugs; Z79.82 Long term (current) use of aspirin; Z79.890 Hormone replacement therapy; Z79.899 Other long term (current) drug therapy; Z20.822 Contact with and (suspected) exposure to COVID-19
CPT/HCPCS: 36415; 71045; 80053; 81001; 83735; 83880; 84443; 84484; 85025; 85610; 86140; 93005; 99285 ×2; U0002; 51702; 80048; 87804; 87804-59; 97161-GP; 97165-GO; A9270-GY; J1650; J1940; J2270

== ENCOUNTER 2021-02-11 13:23 | Emergency (ER) | payer MEDICARE, OTHER ==
--- NOTE | 2021-02-11 14:15 | EDM.PDOC ---
ED HPI GENERAL MEDICAL PROBLEM - General Stated Complaint: abd pain Time Seen by Provider: 02/11/21 13:45 Source of Information: Reports: Patient, Family History Limitations: Reports: No Limitations - History of Present Illness INITIAL COMMENTS - FREE TEXT/NARRATIVE: c/o R flank pain pt with dementia, moved to [facility] 12/31 from her own home dtr with her last night, pt had c/o pain in abd x 2h visit, more R sided, she moaned some, passed flatus dtr called that pt was not eating and c/o inc'd abd pain, pt points to her R flank as source of pain no f/c/d, has some N, says she is not hungry, alert, conversant uses walker PMH: dementia, breast CA 3y ago, "blockages" of heart and legs, declined CABG 3y ago PSH: breast surgery for CA 3y ago dtr gives meds thru a machine that beeps when pt needs to take her meds, pt gets laxative qod, daily caused diarrhea dtr works in HR at [employer] pt admitted Oct for "fluid retention", begun diuretics, lost 30 lb of wt dec'd oral intact today smoked 30-40y ago Bilateral Middle Back Pain Score (Numeric/FACES): 8 - Related Data Allergies Allergy/AdvReac Type Severity Reaction Status Date / Time amitriptyline [From Elavil] Allergy Cannot Verified 01/27/19 15:37 Remember atorvastatin [From Lipitor] Allergy Cannot Verified 01/27/19 15:37 Remember cephalexin Allergy Cannot Verified 01/27/19 15:37 Remember diclofenac [From Arthrotec] Allergy Swelling Verified 02/11/21 14:00 doxycycline Allergy Cannot Verified 02/11/21 14:00 Remember enalaprilat [From Vasotec] Allergy Cannot Verified 02/11/21 14:00 Remember ezetimibe [From Vytorin] Allergy Cannot Verified 02/11/21 14:00 Remember hydrochlorothiazide Allergy Cannot Verified 02/11/21 14:00 Remember meperidine [From Demerol] Allergy Facial Verified 02/11/21 14:00 Swelling metoclopramide [From Reglan] Allergy Facial Verified 02/11/21 14:00 Swelling misoprostol [From Arthrotec] Allergy Cannot Verified 02/11/21 14:00 Remember nifedipine [From Adalat] Allergy Cannot Verified 02/11/21 14:00 Remember Penicillins Allergy Cannot Verified 02/11/21 14:00 Remember pravastatin Allergy Cannot Verified 02/11/21 14:00 Remember prochlorperazine Allergy Cannot Verified 02/11/21 14:00 [From Compazine] Remember ramipril [From Altace] Allergy Cannot Verified 02/11/21 14:00 Remember rofecoxib [From Vioxx] Allergy Cannot Verified 02/11/21 14:00 Remember rosuvastatin [From Crestor] Allergy Cannot Verified 02/11/21 14:00 Remember simvastatin [From Vytorin] Allergy Cannot Verified 02/11/21 14:00 Remember Empqvzh-Tzi-Euz Reductase Allergy Cannot Verified 02/11/21 14:00 Inhibitor Remember terazosin [From Hytrin] Allergy Cannot Verified 02/11/21 14:00 Remember Home Meds: Home Meds Aspirin [Halfprin] 81 mg PO DAILY 04/07/18 [History] Levothyroxine [Synthroid] 50 mcg PO DAILY 04/07/18 [History] Metoprolol Succinate [Toprol Xl] 100 mg PO BID 04/07/18 [History] amLODIPine Besylate [Norvasc] 2.5 mg PO DAILY 04/07/18 [History] Letrozole 2.5 mg PO BEDTIME 01/27/19 [History] Acetaminophen [Tylenol Extra Strength] 1,000 mg PO BID PRN 10/31/20 [History] Cholecalciferol (Vitamin D3) [Vitamin D3] 25 mcg PO DAILY 10/31/20 [History] Citalopram [Citalopram HBr] 30 mg PO DAILY 10/31/20 [History] Clotrimazole [Clotrimazole 1%] 1 applic TOP BID PRN 10/31/20 [History] Cyanocobalamin (Vitamin B-12) [Vitamin B-12] 1,000 mcg PO DAILY 10/31/20 [History] Furosemide [Lasix] 20 mg PO DAILY@1200 10/31/20 [History] Furosemide [Lasix] 40 mg PO DAILY 10/31/20 [History] Ibuprofen 400 mg PO BID PRN 10/31/20 [History] Multivitamin [Gummi Bear Multivitamin] 1 tab PO DAILY 10/31/20 [History] Nystatin [Nystatin Crm] 1 applic TOP BID PRN 10/31/20 [History] Omeprazole 20 mg PO BEDTIME 10/31/20 [History] Potassium Chloride [Klor-Con 10] 10 meq PO BEDTIME 10/31/20 [History] QUEtiapine [SEROquel] 25 mg PO BID@1200,1700 10/31/20 [History] Sennosides/Docusate Sodium [Senna-S] 1 tab PO Q48H 10/31/20 [History] Magnesium Oxide 400 mg PO BID #60 tablet 11/03/20 [Rx] Past Medical History HEENT History: Reports: Cataract, Impaired Vision Other HEENT History: PHACO IOL 03/2018 Cardiovascular History: Reports: High Cholesterol, Hypertension Respiratory History: Reports: None Gastrointestinal History: Reports: Colon Polyp Genitourinary History: Reports: None PHYSICIAN LOCUMS URGENT CARE History: Reports: Other PHYSICIAN LOCUMS URGENT CARE History: VII PARA IV, PARA III Musculoskeletal History: Reports: Arthritis, Fibromyalgia Neurological History: Reports: Migraines Psychiatric History: Reports: Anxiety Endocrine/Metabolic History: Reports: Diabetes, Type II, Hypothyroidism, Multinodular Thyroid, Obesity/BMI 30+ Hematologic History: Reports: Anticoagulation Therapy Other Hematologic History: On no chronic anticoagulation. Immunologic History: Reports: None Oncologic (Cancer) History: Reports: Breast, Cervix Dermatologic History: Reports: None - Infectious Disease History Infectious Disease History: Reports: Chicken Pox, Measles, Mumps - Past Surgical History Head Surgeries/Procedures: Reports: None HEENT Surgical History: Reports: None, Oral Surgery Cardiovascular Surgical History: Reports: Other (See Below) Other Cardiovascular Surgeries/Procedures: ANGIOGRAM Respiratory Surgical History: Reports: None GI Surgical History: Reports: Appendectomy, Colonoscopy, EGD, Hernia, Abdominal, Manuela Fundoplication, Small Bowel Female Surgical History: Reports: Hysterectomy, Mastectomy, Salpingo- Oophorectomy, Other (See Below) Other Female Surgeries/Procedures: A&P BLADDER REPAIR, EXCISION OF VULVAR LESION, LEFT MASTECTOMY Endocrine Surgical History: Reports: None Neurological Surgical History: Reports: None Musculoskeletal Surgical History: Reports: Other (See Below) Other Musculoskeletal Surgeries/Procedures:: BILAT ANKLE LIPOMA EXCISION Oncologic Surgical History: Reports: Biopsy of Breast, Lumpectomy, Mastectomy Dermatological Surgical History: Reports: None Social & Family History - Family History Family Medical History: No Pertinent Family History - Caffeine Use Caffeine Use: Reports: Coffee, Soda, Other Other Caffeine Use: loves sprite and juice. ED ROS GENERAL - Review of Systems Review Of Systems: See Below Constitutional: Reports: Decreased Appetite. Denies: Fever HEENT: Reports: No Symptoms Respiratory: Reports: No Symptoms. Denies: Shortness of Breath, Hemoptysis Cardiovascular: Reports: No Symptoms Endocrine: Reports: No Symptoms GI/Abdominal: Reports: Abdominal Pain, Nausea. Denies: Vomiting : Reports: No Symptoms Musculoskeletal: Reports: No Symptoms Skin: Reports: No Symptoms Neurological: Reports: No Symptoms Psychiatric: Reports: No Symptoms Hematologic/Lymphatic: Reports: No Symptoms Immunologic: Reports: No Symptoms ED EXAM, GI/ABD - Physical Exam Exam: See Below Exam Limited By: No Limitations General Appearance: Alert, WD/WN, No Apparent Distress, Other (alert, interactive, talk complete sentences, irritated, nontoxic, nonill) Nose: Normal Inspection Throat/Mouth: Normal Lips, No Airway Compromise Head: Atraumatic, Normocephalic Neck: Supple, Non-Tender Respiratory/Chest: No Respiratory Distress, Lungs Clear, Normal Breath Sounds, No Accessory Muscle Use, Other (takes DB when asked, clear at bases, no wheeze) Cardiovascular: Other (ext 1-2+ edema to knees b/l, symmetric, no edema above knees, 2/6 RAFFY heart diffusely, no osorio murmur, no S3) GI/Abdominal Exam: Normal Bowel Sounds, Soft, Non-Tender, No Distention, Other (2+ R CVAT, however no R flank tender, no L CVAT, abd NT throughout) Back Exam: Normal Inspection, Full Range of Motion Extremities: Normal Inspection, Normal Range of Motion, Non-Tender Neurological: Alert, No Motor/Sensory Deficits Skin Exam: Warm, Dry, Intact, Normal Color, No Rash Lymphatic: No Adenopathy Course - Vital Signs Last Recorded V/S: Last Vital Signs Temp 36.6 C 02/11/21 13:23 Pulse 65 02/11/21 17:06 Resp 18 02/11/21 17:06 BP 140/53 L 02/11/21 17:06 Pulse Ox 99 02/11/21 17:06 Orthostatic Blood Pressure [ 154/100 Standing] Orthostatic Blood Pressure [ 149/108 Sitting] Orthostatic Blood Pressure [ 149/95 Supine] - Orders/Labs/Meds Orders: Active Orders 24 hr Category Date Time Status EKG Documentation Completion [RC] ASDIRECTED Care 02/11/21 14:17 Ordered Abdomen Pelvis w Cont [CT] Stat Exams 02/11/21 14:18 Ordered Iopamidol [Isovue-370 (76%)] Med 02/11/21 17:15 Active 100 ml IV . DIRECTED EKG 12 Lead [EK] Routine Ther 02/11/21 14:16 Ordered Medication Orders Iopamidol (Iopamidol 755 Mg/Ml 100 Ml Bottle) 100 ml IV . DIRECTED BRANDON Last Admin: 02/11/21 17:15 Dose: 100 ml Documented by: [id number] Labs: Laboratory Tests 02/11/21 02/11/21 02/11/21 Range/Units 13:50 14:45 14:45 WBC 8.4 (3.0-10.3) x10-3/uL RBC 3.96 (3.60-5.20) x10(6)uL Hgb 11.8 (11.4-15.5) g/dL Hct 35.4 (34.2-48.2) % MCV 89.4 (76.7-100.5) fL MCH 29.9 (23.9-33.9) pg MCHC 33.4 (31.9-34.8) g/dL RDW 13.1 (12.3-16.5) % Plt Count 370 (151-488) x10(3)uL MPV 9.3 (7.1-12.4) fL Neut % (Auto) 54.2 (30.8-76.2) % Lymph % (Auto) 33.3 (18.4-52.1) % [place] % (Auto) 7.2 (4.4-15.7) % Eos % (Auto) 4.0 (0.6-8.1) % Baso % (Auto) 1.3 (0.2-1.5) % Neut # (Auto) 4.6 (1.5-6.3) x10-3/uL Lymph # (Auto) 2.8 (1.0-4.4) x10-3/uL [place] # (Auto) 0.6 (0.3-1.0) x10-3/uL Eos # (Auto) 0.3 (0.0-0.8) x10-3/uL Baso # (Auto) 0.1 (0.0-0.1) x10-3/uL PT (9.0-11.1) sec INR (1.00-1.24) Sodium 135 (135-145) mmol/L Potassium 4.5 (3.5-5.3) mmol/L Chloride 98 L (100-110) mmol/L Carbon Dioxide 31 (21-32) mmol/L BUN 14 (7-18) mg/dL Creatinine 1.1 H (0.55-1.02) mg/dL Est Cr Clr Drug Dosing 29.30 mL/min Estimated GFR (MDRD) 48 L (>60) BUN/Creatinine Ratio 12.7 (9-20) Glucose 116 (80-116) mg/dL Lactic Acid (0.4-2.0) mmol/L Calcium 8.4 L (8.6-10.2) mg/dL Total Bilirubin 0.3 (0.1-1.3) mg/dL AST 19 (5-25) IU/L ALT 17 D (12-36) U/L Alkaline Phosphatase 97 (56-112) IU/L Troponin I (4.0-60.3) pg/mL C-Reactive Protein (0.5-0.9) mg/dL NT-Pro-B Natriuret Pep (<=450) pg/mL Total Protein 7.2 (6.0-8.0) g/dL Albumin 2.8 L (3.2-4.6) g/dL Globulin 4.4 g/dL Albumin/Globulin Ratio 0.6 Lipase (73-393) U/L Urine Color Yellow (YELLOW) Urine Appearance Clear (CLEAR) Urine pH 5.0 (5.0-6.5) Ur Specific [place] 1.015 (1.010-1.025) Urine Protein Negative (NEGATIVE) mg/dL Urine Glucose (UA) Normal (NORMAL) mg/dL Urine Ketones Negative (NEGATIVE) mg/dL Urine Occult Blood Negative (NEGATIVE) Urine Nitrite Negative (NEGATIVE) Urine Bilirubin Negative (NEGATIVE) Urine Urobilinogen Normal (NEGATIVE) mg/dL Ur Leukocyte Esterase Negative (NEGATIVE) Urine WBC 0-5 (0-5) Ur Squamous Epith Cells Few H (NS,R,O) Urine Bacteria Few H (NS) SARS-CoV-2 RNA (YOON) (NEGATIVE) 02/11/21 02/11/21 02/11/21 Range/Units 14:45 14:45 14:45 WBC (3.0-10.3) x10-3/uL RBC (3.60-5.20) x10(6)uL Hgb (11.4-15.5) g/dL Hct (34.2-48.2) % MCV (76.7-100.5) fL MCH (23.9-33.9) pg MCHC (31.9-34.8) g/dL RDW (12.3-16.5) % Plt Count (151-488) x10(3)uL MPV (7.1-12.4) fL Neut % (Auto) (30.8-76.2) % Lymph % (Auto) (18.4-52.1) % [place] % (Auto) (4.4-15.7) % Eos % (Auto) (0.6-8.1) % Baso % (Auto) (0.2-1.5) % Neut # (Auto) (1.5-6.3) x10-3/uL Lymph # (Auto) (1.0-4.4) x10-3/uL [place] # (Auto) (0.3-1.0) x10-3/uL Eos # (Auto) (0.0-0.8) x10-3/uL Baso # (Auto) (0.0-0.1) x10-3/uL PT 11.2 H (9.0-11.1) sec INR 1.04 (1.00-1.24) Sodium (135-145) mmol/L Potassium (3.5-5.3) mmol/L Chloride (100-110) mmol/L Carbon Dioxide (21-32) mmol/L BUN (7-18) mg/dL Creatinine (0.55-1.02) mg/dL Est Cr Clr Drug Dosing mL/min Estimated GFR (MDRD) (>60) BUN/Creatinine Ratio (9-20) Glucose (80-116) mg/dL Lactic Acid 0.7 (0.4-2.0) mmol/L Calcium (8.6-10.2) mg/dL Total Bilirubin (0.1-1.3) mg/dL AST (5-25) IU/L ALT (12-36) U/L Alkaline Phosphatase (56-112) IU/L Troponin I 15.2 (4.0-60.3) pg/mL C-Reactive Protein 2.3 H (0.5-0.9) mg/dL NT-Pro-B Natriuret Pep 2691 H* (<=450) pg/mL Total Protein (6.0-8.0) g/dL Albumin (3.2-4.6) g/dL Globulin g/dL Albumin/Globulin Ratio Lipase 83 (73-393) U/L Urine Color (YELLOW) Urine Appearance (CLEAR) Urine pH (5.0-6.5) Ur Specific [place] (1.010-1.025) Urine Protein (NEGATIVE) mg/dL Urine Glucose (UA) (NORMAL) mg/dL Urine Ketones (NEGATIVE) mg/dL Urine Occult Blood (NEGATIVE) Urine Nitrite (NEGATIVE) Urine Bilirubin (NEGATIVE) Urine Urobilinogen (NEGATIVE) mg/dL Ur Leukocyte Esterase (NEGATIVE) Urine WBC (0-5) Ur Squamous Epith Cells (NS,R,O) Urine Bacteria (NS) SARS-CoV-2 RNA (YOON) (NEGATIVE) 02/11/21 Range/Units 15:00 WBC (3.0-10.3) x10-3/uL RBC (3.60-5.20) x10(6)uL Hgb (11.4-15.5) g/dL Hct (34.2-48.2) % MCV (76.7-100.5) fL MCH (23.9-33.9) pg MCHC (31.9-34.8) g/dL RDW (12.3-16.5) % Plt Count (151-488) x10(3)uL MPV (7.1-12.4) fL Neut % (Auto) (30.8-76.2) % Lymph % (Auto) (18.4-52.1) % [place] % (Auto) (4.4-15.7) % Eos % (Auto) (0.6-8.1) % Baso % (Auto) (0.2-1.5) % Neut # (Auto) (1.5-6.3) x10-3/uL Lymph # (Auto) (1.0-4.4) x10-3/uL [place] # (Auto) (0.3-1.0) x10-3/uL Eos # (Auto) (0.0-0.8) x10-3/uL Baso # (Auto) (0.0-0.1) x10-3/uL PT (9.0-11.1) sec INR (1.00-1.24) Sodium (135-145) mmol/L Potassium (3.5-5.3) mmol/L Chloride (100-110) mmol/L Carbon Dioxide (21-32) mmol/L BUN (7-18) mg/dL Creatinine (0.55-1.02) mg/dL Est Cr Clr Drug Dosing mL/min Estimated GFR (MDRD) (>60) BUN/Creatinine Ratio (9-20) Glucose (80-116) mg/dL Lactic Acid (0.4-2.0) mmol/L Calcium (8.6-10.2) mg/dL Total Bilirubin (0.1-1.3) mg/dL AST (5-25) IU/L ALT (12-36) U/L Alkaline Phosphatase (56-112) IU/L Troponin I (4.0-60.3) pg/mL C-Reactive Protein (0.5-0.9) mg/dL NT-Pro-B Natriuret Pep (<=450) pg/mL Total Protein (6.0-8.0) g/dL Albumin (3.2-4.6) g/dL Globulin g/dL Albumin/Globulin Ratio Lipase (73-393) U/L Urine Color (YELLOW) Urine Appearance (CLEAR) Urine pH (5.0-6.5) Ur Specific [place] (1.010-1.025) Urine Protein (NEGATIVE) mg/dL Urine Glucose (UA) (NORMAL) mg/dL Urine Ketones (NEGATIVE) mg/dL Urine Occult Blood (NEGATIVE) Urine Nitrite (NEGATIVE) Urine Bilirubin (NEGATIVE) Urine Urobilinogen (NEGATIVE) mg/dL Ur Leukocyte Esterase (NEGATIVE) Urine WBC (0-5) Ur Squamous Epith Cells (NS,R,O) Urine Bacteria (NS) SARS-CoV-2 RNA (YOON) Negative (NEGATIVE) Meds: Medications Generic Name Dose Route Start Last Admin Trade Name Louise PRN Reason Stop Dose Admin Iopamidol 100 ml 02/11/21 17:15 02/11/21 17:15 Iopamidol 755 Mg/Ml 100 Ml Bottle IV 100 ml . DIRECTED BRANDON Administration - Re-Assessments/Exams Free Text/Narrative Re-Assessment/Exam: 02/11/21 18:13 u/a is neg for infection BNP is 5x ULN, down from 10x ULN 3m ago renal function doing well HF seems well compensated CRP 2.3 for unclear reason as there is no evidence of infection by other parameters (no temp, no increase wbc/segs, neg CT) pt was doing well here Departure - Departure Time of Disposition: 18:10 Disposition: Home, Self-Care 01 Condition: Good Clinical Impression: Constipation, Spasm of colon - Discharge Information *PRESCRIPTION DRUG MONITORING PROGRAM REVIEWED*: Not Applicable *COPY OF PRESCRIPTION DRUG MONITORING REPORT IN PATIENT ROB: Not Applicable Instructions: Constipation, Adult, Chronic Constipation Additional Instructions: To clean out bowels, drink a 10-ounce bottle of magnesium citrate in the morning. If there are 2 good size bowel movements later in the day, drink a second bottle the next day. An alternative is to give MOM (milk of magnesium) 2 tablespoons (30 ml) 2 times a day for several doses whenever Marni does not have a bowel movement for 48 hours. Continue the laxative every other day. Her heart seems to be doing quite well. There is no evidence of infection. See her physician in several days as needed for further instructions. Sepsis Event Note (ED) - Evaluation Sepsis Screening Result: No Definite Risk - Focused Exam Vital Signs: Vital Signs Temp Pulse Resp BP Pulse Ox 02/11/21 17:06 65 18 140/53 L 99 02/11/21 13:23 36.6 C 66 19 144/92 H 98 - My Orders Last 24 Hours: My Active Orders 02/11/21 14:16 EKG 12 Lead [EK] Routine 02/11/21 14:17 EKG Documentation Completion [RC] ASDIRECTED 02/11/21 14:18 Abdomen Pelvis w Cont [CT] Stat 02/11/21 17:15 Iopamidol [Isovue-370 (76%)] 100 ml IV . DIRECTED - Assessment/Plan Last 24 Hours: My Active Orders 02/11/21 14:16 EKG 12 Lead [EK] Routine 02/11/21 14:17 EKG Documentation Completion [RC] ASDIRECTED 02/11/21 14:18 Abdomen Pelvis w Cont [CT] Stat 02/11/21 17:15 Iopamidol [Isovue-370 (76%)] 100 ml IV . DIRECTED
[2021-02-11] MEDS ORDERED: Iopamidol 755 Mg/ML 100 ML Bottle IV SCH (17:15)
== END 2021-02-11 18:40 | disposition home or self-care (01) ==
LOC: FB.ED 13:23
DX: K58.1 Irritable bowel syndrome with constipation (principal); E78.00 Pure hypercholesterolemia, unspecified; I10 Essential (primary) hypertension; M19.90 Unspecified osteoarthritis, unspecified site; E11.9 Type 2 diabetes mellitus without complications; E03.9 Hypothyroidism, unspecified; Z79.899 Other long term (current) drug therapy; Z88.8 Allergy status to other drugs, medicaments and biological substances; Z88.1 Allergy status to other antibiotic agents; Z88.6 Allergy status to analgesic agent; Z88.5 Allergy status to narcotic agent; Z88.0 Allergy status to penicillin; Z79.82 Long term (current) use of aspirin; Z20.822 Contact with and (suspected) exposure to COVID-19
CPT/HCPCS: 36415; 74177; 80053; 81001; 83605; 83690; 83880; 84484; 85025; 85610; 86140; 93005; 99284; Q9967; U0002

== ENCOUNTER 2021-04-05 09:00 | Emergency (ER) | payer MEDICARE, OTHER ==
[2021-04-05] MEDS ORDERED: Acetaminophen 500 MG Tab PO ONE (10:35)
[2021-04-05] MEDS ORDERED: Acetaminophen 500 MG Tab ONE (10:37)
--- NOTE | 2021-04-05 10:38 | EDM.PDOC ---
ED HPI GENERAL MEDICAL PROBLEM - General Chief Complaint: Head Injury Stated Complaint: FALL Time Seen by Provider: 04/05/21 09:50 Source of Information: Reports: Patient History Limitations: Reports: No Limitations - History of Present Illness INITIAL COMMENTS - FREE TEXT/NARRATIVE: Patient presented to the ED because of a head injury. She was at the shower room when she fell and hit her head on the floor. There was no LOC after the fall, denies having any headache, nausea or vomiting. She sustained a 3 cm laceration over the rt fontal area. Right Head Pain Score (Numeric/FACES): 4 - Related Data Allergies Allergy/AdvReac Type Severity Reaction Status Date / Time amitriptyline [From Elavil] Allergy Cannot Verified 01/27/19 15:37 Remember atorvastatin [From Lipitor] Allergy Cannot Verified 01/27/19 15:37 Remember cephalexin Allergy Cannot Verified 01/27/19 15:37 Remember diclofenac [From Arthrotec] Allergy Swelling Verified 02/11/21 14:00 doxycycline Allergy Cannot Verified 02/11/21 14:00 Remember enalaprilat [From Vasotec] Allergy Cannot Verified 02/11/21 14:00 Remember ezetimibe [From Vytorin] Allergy Cannot Verified 02/11/21 14:00 Remember hydrochlorothiazide Allergy Cannot Verified 02/11/21 14:00 Remember meperidine [From Demerol] Allergy Facial Verified 02/11/21 14:00 Swelling metoclopramide [From Reglan] Allergy Facial Verified 02/11/21 14:00 Swelling misoprostol [From Arthrotec] Allergy Cannot Verified 02/11/21 14:00 Remember nifedipine [From Adalat] Allergy Cannot Verified 02/11/21 14:00 Remember Penicillins Allergy Cannot Verified 02/11/21 14:00 Remember pravastatin Allergy Cannot Verified 02/11/21 14:00 Remember prochlorperazine Allergy Cannot Verified 02/11/21 14:00 [From Compazine] Remember ramipril [From Altace] Allergy Cannot Verified 02/11/21 14:00 Remember rofecoxib [From Vioxx] Allergy Cannot Verified 02/11/21 14:00 Remember rosuvastatin [From Crestor] Allergy Cannot Verified 02/11/21 14:00 Remember simvastatin [From Vytorin] Allergy Cannot Verified 02/11/21 14:00 Remember [id number] Reductase Allergy Cannot Verified 02/11/21 14:00 Inhibitor Remember terazosin [From Hytrin] Allergy Cannot Verified 02/11/21 14:00 Remember Home Meds: Home Meds Aspirin [Halfprin] 81 mg PO DAILY 04/07/18 [History] Levothyroxine [Synthroid] 50 mcg PO DAILY 04/07/18 [History] Metoprolol Succinate [Toprol Xl] 100 mg PO BID 04/07/18 [History] amLODIPine Besylate [Norvasc] 2.5 mg PO DAILY 04/07/18 [History] Letrozole 2.5 mg PO BEDTIME 01/27/19 [History] Acetaminophen [Tylenol Extra Strength] 1,000 mg PO BID PRN 10/31/20 [History] Cholecalciferol (Vitamin D3) [Vitamin D3] 25 mcg PO DAILY 10/31/20 [History] Citalopram [Citalopram HBr] 30 mg PO DAILY 10/31/20 [History] Clotrimazole [Clotrimazole 1%] 1 applic TOP BID PRN 10/31/20 [History] Cyanocobalamin (Vitamin B-12) [Vitamin B-12] 1,000 mcg PO DAILY 10/31/20 [History] Furosemide [Lasix] 20 mg PO DAILY@1200 10/31/20 [History] Furosemide [Lasix] 40 mg PO DAILY 10/31/20 [History] Ibuprofen 400 mg PO BID PRN 10/31/20 [History] Multivitamin [Gummi Bear Multivitamin] 1 tab PO DAILY 10/31/20 [History] Nystatin [Nystatin Crm] 1 applic TOP BID PRN 10/31/20 [History] Omeprazole 20 mg PO BEDTIME 10/31/20 [History] Potassium Chloride [Klor-Con 10] 10 meq PO BEDTIME 10/31/20 [History] QUEtiapine [SEROquel] 25 mg PO BID@1200,1700 10/31/20 [History] Sennosides/Docusate Sodium [Senna-S] 1 tab PO Q48H 10/31/20 [History] Magnesium Oxide 400 mg PO BID #60 tablet 11/03/20 [Rx] Past Medical History HEENT History: Reports: Cataract, Impaired Vision Other HEENT History: PHACO IOL 03/2018 Cardiovascular History: Reports: High Cholesterol, Hypertension Respiratory History: Reports: None Gastrointestinal History: Reports: Colon Polyp Genitourinary History: Reports: None MACHINE PRINTER History: Reports: Other MACHINE PRINTER History: VII PARA IV, PARA III Musculoskeletal History: Reports: Arthritis, Fibromyalgia Neurological History: Reports: Migraines Psychiatric History: Reports: Anxiety Other Psychiatric History: Hx of Dementia as per daughter report Endocrine/Metabolic History: Reports: Diabetes, Type II, Hypothyroidism, Multinodular Thyroid, Obesity/BMI 30+ Hematologic History: Reports: Anticoagulation Therapy Other Hematologic History: On no chronic anticoagulation. Immunologic History: Reports: None Oncologic (Cancer) History: Reports: Breast, Cervix Dermatologic History: Reports: None - Infectious Disease History Infectious Disease History: Reports: Chicken Pox, Measles, Mumps - Past Surgical History Head Surgeries/Procedures: Reports: None HEENT Surgical History: Reports: None, Oral Surgery Cardiovascular Surgical History: Reports: Other (See Below) Other Cardiovascular Surgeries/Procedures: ANGIOGRAM Respiratory Surgical History: Reports: None GI Surgical History: Reports: Appendectomy, Colonoscopy, EGD, Hernia, Abdominal, Manuela Fundoplication, Small Bowel Female Surgical History: Reports: Hysterectomy, Mastectomy, Salpingo- Oophorectomy, Other (See Below) Other Female Surgeries/Procedures: A&P BLADDER REPAIR, EXCISION OF VULVAR LESION, LEFT MASTECTOMY Endocrine Surgical History: Reports: None Neurological Surgical History: Reports: None Musculoskeletal Surgical History: Reports: Other (See Below) Other Musculoskeletal Surgeries/Procedures:: BILAT ANKLE LIPOMA EXCISION Oncologic Surgical History: Reports: Biopsy of Breast, Lumpectomy, Mastectomy Dermatological Surgical History: Reports: None Social & Family History - Family History Family Medical History: No Pertinent Family History - Tobacco Use Tobacco Use Status *Q: Unknown Ever Used Tobacco - Caffeine Use Caffeine Use: Reports: Coffee Other Caffeine Use: loves sprite and juice. ED ROS GENERAL - Review of Systems Review Of Systems: See Below Constitutional: Reports: No Symptoms HEENT: Reports: No Symptoms Respiratory: Reports: No Symptoms Cardiovascular: Reports: No Symptoms Endocrine: Reports: No Symptoms GI/Abdominal: Reports: No Symptoms : Reports: No Symptoms Musculoskeletal: Reports: No Symptoms Skin: Reports: Wound Neurological: Reports: No Symptoms Psychiatric: Reports: No Symptoms ED EXAM, HEAD INJURY - Physical Exam Exam: See Below Exam Limited By: No Limitations General Appearance: Alert, No Apparent Distress Head: Atraumatic, Normocephalic Ears: Normal External Exam, Normal Canal, Hearing Grossly Normal Nose: Normal Inspection, Normal Mucousa, No Blood Throat/Mouth: Normal Inspection, Normal Lips, Normal Teeth, Normal Gums Neck: Non-Tender, Full Range of Motion, Normal Alignment Respiratory: No Respiratory Distress, Lungs Clear, Normal Breath Sounds Cardiovascular: Normal Peripheral Pulses, Regular Rate, Rhythm, No Edema, No Gallop GI/Abdominal Exam: Normal Bowel Sounds, Soft, Non-Tender, No Organomegaly Back Exam: Normal Inspection, Full Range of Motion Extremities: Normal Inspection, Normal Range of Motion ED LACERATION/WOUND & MARIA E PROC - Laceration/Wound Repair Right Forehead Lac/wound length in cm: 3 Appearance: Superficial, Clean Distal NVT: Neuro & Vascular Intact Skin Prep: Chlorhexidine (Hibiciens) Closed with: Dermabond Course - Vital Signs Text/Narrative:: UTD with immunization Tylenol 1000 mg PO x1 Last Recorded V/S: Last Vital Signs Temp 36.8 C 04/05/21 09:05 Pulse 61 04/05/21 10:40 Resp 16 04/05/21 10:40 BP 185/86 H 04/05/21 10:40 Pulse Ox 98 04/05/21 10:40 - Orders/Labs/Meds Meds: Medications Discontinued Medications Generic Name Dose Route Start Last Admin Trade Name Louise PRN Reason Stop Dose Admin Acetaminophen Confirm 04/05/21 10:37 04/05/21 11:54 Acetaminophen 500 Mg Tab Administered 04/05/21 10:38 Not Given Dose 1,000 mg .ROUTE .STK-MED ONE Acetaminophen 1,000 mg 04/05/21 10:35 04/05/21 10:38 Acetaminophen 500 Mg Tab PO 04/05/21 10:36 1,000 mg ONETIME ONE Administration Departure - Departure Time of Disposition: 10:50 Disposition: Home, Self-Care 01 Condition: Good Clinical Impression: Closed head injury, Laceration of head - Discharge Information Instructions: Head Injury, Adult, [id number], Laceration Care, Adult, [id number] Referrals: Elva Ledesma PILL MACHINE OPERATOR [Primary Care Provider] - Forms: ED Department Discharge Additional Instructions: Please read discharge instructions on head injury and laceration Take tylenol 1000 mg every 8 hours as needed for pain No need to apply an antibiotic ointment, the glue is medicated No need to cover your wound, moisture will dissolve the glue Keep the wound dry for 3-5 days and don't remove the scab Follow up as needed Sepsis Event Note (ED) - Evaluation Sepsis Screening Result: No Definite Risk - Focused Exam Vital Signs: Vital Signs Temp Pulse Resp BP Pulse Ox 04/05/21 10:40 61 16 185/86 H 98 04/05/21 09:05 36.8 C 63 18 184/71 H 98
--- NOTE | 2021-04-05 11:09 | CT ---
INDICATION: Fall. CT HEAD WITHOUT CONTRAST: Spiral 3.75 mm axial sections were obtained through the brain without contrast with axial, sagittal and coronal reconstructions 04/05/21 and compared with 01/27/19. Total exam DLP was 1322.30 milligray/cm. No cranial fracture site was identified. A scalp laceration is noted with air in the soft tissues in the right frontal area. Paranasal sinuses and mastoid air cells appear to be adequately aerated. Calcifications are noted in the vertebral arteries especially in the right and in the internal carotid arteries. The orbits appear to be intact. No shift of midline structures was identified. Ventricles are prominent as are the sulci compatible with generalized atrophy. 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 Areas of decreased density are scattered about the white matter similar to very slightly increased in severity compared with the previous study compatible with moderate microvascular type disease, although other cause of leukoencephalopathy cannot be excluded. No other abnormal areas of density were identified - no bleeding site or hematoma was identified. IMPRESSION: 1. No acute intracranial abnormality. 2. 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 3. Right frontal scalp laceration. Report was called to Dr. Muniz at approximately 1020 hours 04/05/21. [facility]
== END 2021-04-05 10:50 | disposition home or self-care (01) ==
LOC: FB.ED 09:00
DX: S01.81XA Laceration without foreign body of other part of head, initial encounter (principal); E78.00 Pure hypercholesterolemia, unspecified; I10 Essential (primary) hypertension; E03.9 Hypothyroidism, unspecified; Z79.82 Long term (current) use of aspirin; Z88.0 Allergy status to penicillin; Z88.5 Allergy status to narcotic agent; Z88.1 Allergy status to other antibiotic agents; Z88.8 Allergy status to other drugs, medicaments and biological substances; W18.09XA Striking against other object with subsequent fall, initial encounter; Y92.002 Bathroom of unspecified non-institutional (private) residence as the place of occurrence of the external cause
CPT/HCPCS: 12013; 70450; 99282; 99283-25; A9270-GY

== ENCOUNTER 2022-06-30 21:55 | Emergency (ER) | payer MEDICARE, OTHER | END 2022-06-30 23:00 | disposition home or self-care (01) | LOC: FB.ED 21:55 | DX: S06.0X0A Concussion without loss of consciousness, initial encounter (principal); E78.00 Pure hypercholesterolemia, unspecified; I10 Essential (primary) hypertension; E11.9 Type 2 diabetes mellitus without complications; Z88.1 Allergy status to other antibiotic agents; Z88.8 Allergy status to other drugs, medicaments and biological substances; Z88.6 Allergy status to analgesic agent; Z88.0 Allergy status to penicillin; Z79.82 Long term (current) use of aspirin; Z79.899 Other long term (current) drug therapy; Z90.49 Acquired absence of other specified parts of digestive tract; Z90.710 Acquired absence of both cervix and uterus; W01.10XA Fall on same level from slipping, tripping and stumbling with subsequent striking against unspecified object, initial encounter | CPT/HCPCS: 70450; 72125; 99284 ==

== ENCOUNTER 2022-11-05 11:33 | Emergency (ER) | payer MEDICARE, OTHER ==
[2022-11-05] MEDS ORDERED: Sodium Chloride 0.9% 10 ML Syringe FLUSH PRN (11:58)
[2022-11-05] MEDS ORDERED: Albuterol/Ipratropium 3.0-0.5 MG/3 ML Neb Soln NEB ONE (12:18)
[2022-11-05 12:36] LABS: BASE EXCESS VENOUS,POC 6 mmol/L (-2 - 3+); PCO2 VENOUS,POC 31 mmHg (41-51); PH VENOUS,POC 7.55 pH Units (7.32-7.43)
[2022-11-05 12:37] LABS: ESTIMATED GFR 38 mL/min (>60)
[2022-11-05] MEDS ORDERED: Furosemide 40 MG/4 ML VIAL IVPUSH ONE (13:50)
[2022-11-05] MEDS ORDERED: Heparin Sodium 5,000 Units/ML Vial IVPUSH ONE (13:50)
[2022-11-05] MEDS ORDERED: Heparin Sodium/0.45% NaCl 500 ML IV SCH (14:00)
[2022-11-05] MEDS ORDERED: Aspirin 81 MG Tab.Chew PO ONE (14:06)
== END 2022-11-05 14:57 ==
LOC: FB.ED 11:33
DX: I24.9 Acute ischemic heart disease, unspecified (principal); I11.0 Hypertensive heart disease with heart failure; I50.9 Heart failure, unspecified; E78.00 Pure hypercholesterolemia, unspecified; E11.9 Type 2 diabetes mellitus without complications; E03.9 Hypothyroidism, unspecified; Z87.891 Personal history of nicotine dependence; Z88.1 Allergy status to other antibiotic agents; Z88.8 Allergy status to other drugs, medicaments and biological substances; Z88.6 Allergy status to analgesic agent; Z88.0 Allergy status to penicillin; Z79.82 Long term (current) use of aspirin; Z79.899 Other long term (current) drug therapy
CPT/HCPCS: 36415; 71045; 80053; 83605; 83880; 84484; 85025; 86140; 87040; 87077; 87186; 93005; 93010; 94640; 96365; 96375; 99285; 99285-25; A9270-GY; J1644; J1940; J3490; J7620